=== PATIENT | female | born 1955 | race Caucasian/White ===

== ENCOUNTER → 2017-10-06 09:23 | Outpatient (CLI) | payer BC, SELFPAY ==
[2017-10-06 09:37] LABS: Basophils % 0.5 % (0.1-2.0); Eosinophils # 0.2 K/mm3 (0.0-0.4); Hemoglobin 14.6 g/dL (12.2-16.2); Lymphocytes # 1.5 K/mm3 (0.7-4.5); Lymphocytes % 27.9 K/mm3 (10-50); Mean Corpuscular HGB Conc 32.5 g/dL (31.8-35.4); Mean Corpuscular Hemoglobin 29.2 pg (27.0-31.2); Monocytes # 0.3 K/mm3 (0.1-1.0); Monocytes % 5.3 % (1.7-9.3); Neutrophils # 3.4 K/mm3 (1.8-7.8); Neutrophils % 63.3 % (37.0-80.0); Platelet Count 244 K/mm3 (142-424); Red Cell Distribution Width 12.7 % (11.5-17.5); White Blood Count 5.4 K/mm3 (4.8-10.8)
[2017-10-06 10:56] LABS: Alanine Aminotransferase 32 U/L (12-78); Albumin Level 4.2 gm/dL (3.4-5.0); Albumin/Globulin Ratio 1.3 (1.1-1.8); Alkaline Phosphatase 101 U/L (46-116); Anion Gap 12.2 mEq/L (5-15); Aspartate Amino Transferase 23 U/L (15-37); Bilirubin,Total 1.1 mg/dL (0.2-1.0); Blood Urea Nitrogen 15 mg/dL (7-18); Calcium 9.2 mg/dL (8.5-10.1); Carbon Dioxide 29 mmol/L (21.0-32.0); Chloride 105 mmol/L (98-107); Chol/HDL Ratio 2.8 (1-3.5); Cholesterol 156 mg/dL (140-200); Creatinine,Serum 0.78 mg/dL (0.55-1.02); Estimated Glomerular Filt Rate 75 ml/min (>60); GFR (African American) 90 ML/MIN (>60); Globulin 3.2 gm/dl (1.3-3.2); Glucose 124 mg/dL (74-106); HDL Cholesterol 55 mg/dL (29-89); LDL Cholesterol 86 mg/dL (0-130); Potassium 4.2 mmoL/L (3.5-5.1); Sodium 142 mmol/L (136-145); Total Protein,Serum 7.4 gm/dL (6.4-8.2); Triglycerides 76 mg/dL (30-200); VLDL Cholesterol 15 mg/dL (0-40)
[2017-10-07 19:41] LABS: Vitamin B12 1219 pg/mL (232-1245)
== END ==
PROVIDERS: Visit Provider Internal Medicine Adolescent Medicine
DX: E78.5 Hyperlipidemia, unspecified (principal); E53.8 Deficiency of other specified B group vitamins
CPT/HCPCS: 36415; 80053; 80061; 82607; 85025

== ENCOUNTER → 2018-10-05 09:19 | Outpatient (CLI) | payer BC, SELFPAY ==
[2018-10-05 09:36] LABS: Basophils % 0.6 % (0.1-2.0); Eosinophils # 0.1 K/mm3 (0.0-0.4); Eosinophils % 2.6 % (0.1-12.0); Hematocrit 40.6 % (37.0-47.0); Hemoglobin 14.1 g/dL (12.2-16.2); Lymphocytes # 1.7 K/mm3 (0.7-4.5); Lymphocytes % 31.8 % (10-50); Mean Corpuscular HGB Conc 34.7 g/dL (31.8-35.4); Mean Corpuscular Hemoglobin 30.3 pg (27.0-31.2); Mean Corpuscular Volume 87.2 fl (81-99); Mean Platelet Volume 7.8 fl (7.4-10.4); Monocytes # 0.3 K/mm3 (0.1-1.0); Monocytes % 5.4 % (1.7-9.3); Neutrophils # 3.1 K/mm3 (1.8-7.8); Neutrophils % 59.6 % (37.0-80.0); Platelet Count 230 K/mm3 (142-424); Red Blood Count 4.65 M/mm3 (4.20-5.40); Red Cell Distribution Width 12.8 % (11.5-17.5); White Blood Count 5.3 K/mm3 (4.8-10.8)
[2018-10-05 10:43] LABS: Alanine Aminotransferase 35 U/L (12-78); Albumin Level 3.8 gm/dL (3.4-5.0); Albumin/Globulin Ratio 1.3 (1.1-1.8); Alkaline Phosphatase 97 U/L (46-116); Anion Gap 12.1 mEq/L (5-15); Aspartate Amino Transferase 18 U/L (15-37); Bilirubin,Total 0.9 mg/dL (0.2-1.0); Blood Urea Nitrogen 11 mg/dL (7-18); Carbon Dioxide 28 mmol/L (21.0-32.0); Chloride 106 mmol/L (98-107); Chol/HDL Ratio 2.8 (1-3.5); Cholesterol 150 mg/dL (140-200); Creatinine,Serum 0.77 mg/dL (0.55-1.02); Estimated Glomerular Filt Rate 75 ml/min (>60); Free Thyroxine Index 1.8 ug/dL (5.93-13.13); GFR (African American) 91 ML/MIN (>60); Globulin 2.9 gm/dl (1.3-3.2); Glucose 119 mg/dL (74-106); HDL Cholesterol 53 mg/dL (29-89); LDL Cholesterol 77 mg/dL (0-130); Potassium 4.1 mmoL/L (3.5-5.1); Sodium 142 mmol/L (136-145); T4 (Thyroxine) 5.5 ug/dl (4.7-13.3); Total Protein,Serum 6.7 gm/dL (6.4-8.2); Triglycerides 98 mg/dL (30-200); Triiodothryronine (T3) Uptake 32 % (31-39); VLDL Cholesterol 20 mg/dL (0-40)
[2018-10-05 10:59] LABS: Hemoglobin A1C 6.5 % (0.0-7.0)
[2018-10-07 17:24] LABS: Vitamin B12 829 pg/mL (232-1245); Vitamin D 25 Hydroxy 38.4 ng/mL (30.0-100.0)
== END ==
PROVIDERS: Visit Provider Internal Medicine Adolescent Medicine
DX: E78.5 Hyperlipidemia, unspecified (principal); E53.8 Deficiency of other specified B group vitamins; E55.9 Vitamin D deficiency, unspecified; R73.03 Prediabetes; R79.89 Other specified abnormal findings of blood chemistry
CPT/HCPCS: 36415; 80053; 80061; 82607; 82652; 83036; 84436; 84443; 84479; 85025

== ENCOUNTER → 2019-01-04 09:24 | Outpatient (CLI) | payer BC, SELFPAY ==
[2019-01-04 11:24] LABS: Hemoglobin A1C 6.3 % (0.0-7.0)
[2019-01-04 11:55] LABS: Alanine Aminotransferase 32 U/L (12-78); Albumin Level 4.1 gm/dL (3.4-5.0); Albumin/Globulin Ratio 1.5 (1.1-1.8); Alkaline Phosphatase 86 U/L (46-116); Anion Gap 12.2 mEq/L (5-15); Aspartate Amino Transferase 23 U/L (15-37); Bilirubin,Total 1.2 mg/dL (0.2-1.0); Blood Urea Nitrogen 14 mg/dL (7-18); Calcium 9.1 mg/dL (8.5-10.1); Carbon Dioxide 28 mmol/L (21.0-32.0); Chloride 104 mmol/L (98-107); Chol/HDL Ratio 2.7 (1-3.5); Cholesterol 123 mg/dL (140-200); Estimated Glomerular Filt Rate 72 ml/min (>60); GFR (African American) 87 ML/MIN (>60); Globulin 2.8 gm/dl (1.3-3.2); Glucose 103 mg/dL (74-106); HDL Cholesterol 45 mg/dL (29-89); LDL Cholesterol 65 mg/dL (0-130); Potassium 4.2 mmoL/L (3.5-5.1); Sodium 140 mmol/L (136-145); Total Protein,Serum 6.9 gm/dL (6.4-8.2); Triglycerides 66 mg/dL (30-200); VLDL Cholesterol 13 mg/dL (0-40)
== END ==
PROVIDERS: Visit Provider Internal Medicine Adolescent Medicine
DX: R73.03 Prediabetes (principal); E78.5 Hyperlipidemia, unspecified
CPT/HCPCS: 36415; 80053; 80061; 83036

== ENCOUNTER → 2019-03-14 08:26 | Outpatient (CLI) | payer BC, SELFPAY ==
[2019-03-14 08:53] LABS: Basophils % 0.6 % (0.1-2.0); Eosinophils # 0.1 K/mm3 (0.0-0.4); Eosinophils % 1.5 % (0.1-12.0); Hematocrit 42.6 % (37.0-47.0); Lymphocytes # 1.6 K/mm3 (0.7-4.5); Lymphocytes % 26.5 % (10-50); Mean Corpuscular HGB Conc 32.8 g/dL (31.8-35.4); Mean Corpuscular Volume 91.5 fl (81-99); Mean Platelet Volume 8.6 fl (7.4-10.4); Monocytes # 0.3 K/mm3 (0.1-1.0); Monocytes % 5.1 % (1.7-9.3); Neutrophils # 3.9 K/mm3 (1.8-7.8); Neutrophils % 66.3 % (37.0-80.0); Platelet Count 247 K/mm3 (142-424); Red Blood Count 4.65 M/mm3 (4.20-5.40); Red Cell Distribution Width 13.4 % (11.5-17.5); White Blood Count 5.9 K/mm3 (4.8-10.8)
[2019-03-14 11:50] LABS: Alanine Aminotransferase 25 U/L (12-78); Albumin Level 3.8 gm/dL (3.4-5.0); Albumin/Globulin Ratio 1.4 (1.1-1.8); Alkaline Phosphatase 80 U/L (46-116); Anion Gap 11.3 mEq/L (5-15); Aspartate Amino Transferase 17 U/L (15-37); Bilirubin,Total 1.2 mg/dL (0.2-1.0); Blood Urea Nitrogen 8 mg/dL (7-18); Carbon Dioxide 28 mmol/L (21.0-32.0); Chloride 108 mmol/L (98-107); Creatinine,Serum 0.76 mg/dL (0.55-1.02); Estimated Glomerular Filt Rate 77 ml/min (>60); Free Thyroxine Index 2.6 ug/dL (5.93-13.13); GFR (African American) 93 ML/MIN (>60); Globulin 2.7 gm/dl (1.3-3.2); Glucose 107 mg/dL (74-106); Potassium 4.3 mmoL/L (3.5-5.1); Sodium 143 mmol/L (136-145); Thyroid Stimulating Hormone 2.58 uIU/ml (0.358-3.740); Total Protein,Serum 6.5 gm/dL (6.4-8.2); Triiodothryronine (T3) Uptake 37 % (31-39)
[2019-03-15 08:19] LABS: Vitamin B12 706 pg/mL (232-1245); Vitamin D 25 Hydroxy 31.3 ng/mL (30.0-100.0)
[2019-03-18 15:13] LABS: Methylmalonic Acid 116 nmol/L (0-378)
== END ==
PROVIDERS: Visit Provider Internal Medicine Adolescent Medicine
DX: R73.03 Prediabetes (principal); E53.8 Deficiency of other specified B group vitamins; R41.3 Other amnesia
CPT/HCPCS: 36415; 80053; 82131; 82607; 82652; 84436; 84443; 84479; 85025

== ENCOUNTER → 2019-03-15 15:44 | Outpatient (CLI) | payer BC, SELFPAY ==
--- NOTE | 2019-03-15 15:46 | MR_ITS ---
PROCEDURE: MR HEAD/BRAIN WO CON CLINICAL INDICATION: NONINTRACTABLE EPISODIC HEADACHE, MEMORY LOSS Memory loss with headache COMPARISON: No exams were available for comparison TECHNIQUE: Routine multiplanar multi echo sequences are performed without gadolinium enhancement. FINDINGS: No midline shift or mass effect. No acute intracranial hemorrhage hydrocephalus or acute cortical infarction. The cerebellopontine angles, cerebellum, and brainstem have an unremarkable appearance. There is minimal periventricular T2 white matter hyperintensity. A small sub cortical hyperintensity is present in the right parietal lobe. This is nonspecific and may be due to small ischemic gliotic focus. The hippocampal structures are unremarkable in the temporal horns are symmetric. The pituitary, optic chiasm, corpus callosum, and craniocervical junction has an unremarkable appearance. No mastoid effusion or sinus air-fluid level. Small T2 hyperintensity is present in the right parietal bone anteriorly nonspecific. IMPRESSION: 1. No acute intracranial finding. 2. Small T2 subcortical hyperintensity in the right parietal lobe nonspecific and may be due to small ischemic gliotic focus. Follow-up may confirm stability Dictated by: Isai Bergeron MD 03/15/2019 18:26 Electronically signed by Isai Bergeron MD in [place] 03/16/2019 09:46
== END ==
PROVIDERS: PCP Internal Medicine Adolescent Medicine; Visit Provider Internal Medicine Adolescent Medicine
DX: R51 Headache (principal); R41.3 Other amnesia
CPT/HCPCS: 70551

== ENCOUNTER → 2019-06-18 09:20 | Outpatient (CLI) | payer BC, SELFPAY ==
--- NOTE | 2019-06-18 09:23 | MR_ITS ---
PROCEDURE: MR HEAD/BRAIN WO CON CLINICAL INDICATION: NONINTRACTABLE EPISODIC HEADACHE, MEMORY LOSS Follow-up abnormal MRI of the brain COMPARISON: MR HEAD/BRAIN WO CON from 03/15/2019 TECHNIQUE: Routine multiplanar multi echo sequences are performed without gadolinium enhancement. FINDINGS: No midline shift, mass effect, intracranial hemorrhage, or hydrocephalus. The cerebellopontine angles, cerebellum, and brainstem have an appearance. No restricted diffusion. No evidence of acute infarction. A small T2 hyperintensity is once again noted in the subcortical region of the right parietal lobe at the post frontal cortex region. This appears slightly less intense on the axial FLAIR images there are a few other T2 white matter hyperintensities not significantly changed. No evidence of acute infarction. The pituitary, optic chiasm, corpus callosum, and craniocervical junction have an unremarkable appearance. IMPRESSION: 1. Overall stable MRI appearance of the brain. The small subcortical T2 white matter hyperintensity in the right parietal lobe appears slightly less apparent compared to the previous exam with the T2 intensity not quite so hyperintense as compared to the previous exam. This may represent a small ischemic gliotic focus. Recommend continued six-month follow-up. 2. No other significant changes. No acute finding. Dictated by: Isai Bergeron MD 06/19/2019 13:05 Electronically signed by Isai Bergeron MD in [place] 06/19/2019 13:05
== END ==
PROVIDERS: PCP Internal Medicine Adolescent Medicine; Visit Provider Internal Medicine Adolescent Medicine
DX: R51 Headache (principal); R41.3 Other amnesia
CPT/HCPCS: 70551

== ENCOUNTER → 2019-07-15 16:06 | Outpatient (CLI) | payer BC, SELFPAY ==
[2019-07-15 16:09] LABS: MANUAL DIFFERENTIAL MANUAL DIFFERENTIAL (MANUAL DIFF)
--- NOTE | 2019-07-15 16:14 | XR_ITS ---
PROCEDURE: XR CHEST 2V CLINICAL HISTORY: cough COMPARISON: CXR CHEST(2 VIEWS-NOT PORTABLE) from 11/09/2013 FINDINGS: The cardiomediastinal silhouette and pulmonary vascularity are within normal limits. The lungs are clear without infiltrates, suspicious nodules, or pleural effusions. No acute bony abnormalities. IMPRESSION: No acute findings. Dictated by: Isai Bergeron MD 07/15/2019 17:26 Electronically signed by Isai Bergeron MD in [place] 07/15/2019 17:26
[2019-07-15 16:52] LABS: Basophils % 0.3 % (0.1-2.0); Eosinophils % 0.2 % (0.1-12.0); Hemoglobin 12.7 g/dL (12.2-16.2); Lymphocytes # 0.6 K/mm3 (0.7-4.5); Lymphocytes % 8.6 % (10-50); Mean Corpuscular HGB Conc 34.2 g/dL (31.8-35.4); Mean Corpuscular Hemoglobin 29.8 pg (27.0-31.2); Mean Corpuscular Volume 87.1 fl (81-99); Monocytes # 0.3 K/mm3 (0.1-1.0); Monocytes % 3.5 % (1.7-9.3); Neutrophils # 6.3 K/mm3 (1.8-7.8); Neutrophils % 87.4 % (37.0-80.0); Platelet Count 325 K/mm3 (142-424); Red Blood Count 4.25 M/mm3 (4.20-5.40); White Blood Count 7.1 K/mm3 (4.8-10.8)
[2019-07-15 17:49] LABS: Lymphocytes % 13 % (10-50); Monocytes % 1 % (2-9); Neutrophils % 86 % (42-76); Platelet Estimate Normal; RBC Morphology Normal; Total Cells Counted 100
== END ==
PROVIDERS: Visit Provider Otolaryngology
DX: J02.9 Acute pharyngitis, unspecified (principal); R05 Cough
CPT/HCPCS: 36415; 71046; 85007; 85014; 85018; 85048; 85049

== ENCOUNTER → 2020-01-15 13:14 | Outpatient (CLI) | payer BC, MEDICARE, SELFPAY ==
[2020-01-15 15:28] VITALS: BMI 25.5
== END ==
PROVIDERS: PCP Internal Medicine Adolescent Medicine; Visit Provider Nurse Practitioner Family
DX: Z02.1 Encounter for pre-employment examination (principal); Z11.1 Encounter for screening for respiratory tuberculosis
CPT/HCPCS: 86580

== ENCOUNTER 2020-04-07 06:38 | Emergency (ER) | payer BC, MEDICARE, SELFPAY ==
[2020-04-07 06:40] VITALS: BP 145/86; PULSE 69; RESP 16; TEMP 36.4; O2SAT 98; BMI 25.7
--- NOTE | 2020-04-07 06:44 | PC.NURSE ---
Patient providing urine sample at this time.
[2020-04-07 06:47] VITALS: BMI 26.6
--- NOTE | 2020-04-07 06:48 | CT_ITS ---
PROCEDURE: CT ABDOMEN PELVIS WO CON CLINICAL INDICATION: rule out kidney stone Right flank pain COMPARISON: No exams were available for comparison TECHNIQUE: Axial images obtained with sagittal and coronal reformats. All CT scans at the facility use one or more dose reduction, viz: automated exposure control, ma/kV adjustment per patient size (including targeted exams where dose is matched to indication, i.e. head), or iterative reconstruction technique. FINDINGS: LOWER THORAX: There is moderate-sized hiatal hernia. ABDOMEN & PELVIS: The liver, spleen, adrenal glands, and pancreas have an unremarkable appearance. Gallbladder is slightly distended. Cortical scarring is present involving the midportion of the left kidney anteriorly with a focal calcification at this region which measures 7 mm. There are bilateral renal cysts. No hydronephrosis. No ureteral calculi. There is diverticulosis of the descending and sigmoid colon but no evidence of diverticulitis. The appendix is not clearly identified but there are no secondary signs of appendicitis. There has been a prior hysterectomy osteoarthritic changes are present in the hips. There is a tiny umbilical hernia containing fat IMPRESSION: 1. No acute abdominal or pelvic findings. 2. Moderate-sized hiatal hernia Dictated by: Isai Bergeron MD 04/07/2020 08:28 Isai Bergeron MD in [place] 04/07/2020 08:28
[2020-04-07 07:01] LABS: Microscopic, Urine URINE MICROSCOPIC (MICROSCOPIC)
[2020-04-07 07:03] LABS: Appearance,Urine CLEAR (Clear); Bilirubin,Urine Negative (Negative); Blood, Urine Negative (Negative); Color,Urine YELLOW (Yellow); Glucose,Urine (UA) Negative (Negative); Ketones,Urine Negative (Negative); Leukocyte Esterase,Urine Negative (Negative); Nitrate,Urine Negative (Negative); Protein,Urine Negative (Negative); Urobilinogen,Urine 0.2 EU/dl (0.2)
[2020-04-07 07:04] LABS: RBC,Urine Occasional #/hpf (0-3)
[2020-04-07 07:11] LABS: Basophils % 0.5 % (0.1-2.0); Eosinophils # 0.1 K/mm3 (0.0-0.4); Eosinophils % 1.8 % (0.1-12.0); Hematocrit 41.5 % (37.0-47.0); Hemoglobin 13.4 g/dL (12.2-16.2); Lymphocytes # 1.4 K/mm3 (0.7-4.5); Lymphocytes % 24.5 % (10-50); Mean Corpuscular HGB Conc 32.4 g/dL (31.8-35.4); Mean Corpuscular Hemoglobin 29.9 pg (27.0-31.2); Mean Corpuscular Volume 92.3 fl (81-99); Mean Platelet Volume 7.3 fl (7.4-10.4); Monocytes # 0.3 K/mm3 (0.1-1.0); Monocytes % 5.1 % (1.7-9.3); Neutrophils % 68.1 % (37.0-80.0); Platelet Count 242 K/mm3 (142-424); Red Cell Distribution Width 12.9 % (11.5-17.5); White Blood Count 5.9 K/mm3 (4.8-10.8)
[2020-04-07 07:15] LABS: Chloride 100 mmol/L (98-107)
[2020-04-07 07:16] LABS: Potassium 4.3 mmoL/L (3.5-5.1); Sodium 135 mmol/L (136-145)
[2020-04-07 07:18] LABS: Blood Urea Nitrogen 15 mg/dl (7-17); Creatinine Clearance Estimated 66 mL/min (50-200); Estimated Glomerular Filt Rate 63 ml/min (>60); GFR (African American) 76 ML/MIN (>60)
[2020-04-07 07:19] LABS: Alanine Aminotransferase 29 U/L (12-78); Albumin Level 4.5 g/dl (3.5-5.0); Albumin/Globulin Ratio 1.8 (1.1-1.8); Alkaline Phosphatase 82 U/L (38-126); Anion Gap 10.3 mEq/L (5-15); Aspartate Amino Transferase 35 U/L (14-36); Bilirubin,Total 1.1 mg/dl (0.2-1.3); Calcium 9.1 mg/dl (8.4-10.2); Carbon Dioxide 29 mmol/L (22.0-30.0); Globulin 2.5 g/dL (1.3-3.2); Glucose 125 mg/dl (74-100)
[2020-04-07 07:21] VITALS: BP 115/96; PULSE 69; O2SAT 97
[2020-04-07 07:25] LABS: C-Reactive Protein 0.8 mg/L (0-4)
[2020-04-07 07:30] VITALS: BP 113/67; PULSE 64; O2SAT 95
[2020-04-07 07:37] LABS: Procalcitonin 0.056 ng/mL (0.0-2.0)
[2020-04-07 07:38] LABS: Amylase 55 U/L (30-110); Coronavirus 19 IgG Antibody Negative (Negative); Coronavirus 19 IgM Antibody Negative (Negative); Lipase 113 U/L (23-300)
[2020-04-07 07:58] LABS: Amylase 55 U/L (30-110); Lipase 111 U/L (23-300)
--- NOTE | 2020-04-07 07:58 | HMH.EDNVD ---
ED Disposition Clinical Impression: Lumbar radiculopathy Disposition: Home, Self-Care Condition on Discharge: Good Instructions: DI for Low Back Pain Additional Instructions: use meds and call pcp for follow up Prescriptions: Hydrocod/Acet 5/325 mg [Topaz 5/325mg tablet] 1 tab PO Q6HP PRN #12 tab PRN Reason: Moderate To Severe Pain Prescription Printed predniSONE [Prednisone 20mg Tab] 20 mg PO BID #10 tab Transmission Status: Pending to [facility] Referrals: Osvaldo Omalley MD [Primary Care Provider] - - Critical Care Critical Care Time: No Attestation: On 04/07/20, the high probability of a clinically significant, sudden or life threatening deterioration of the following system(s) required my full and direct attention, intervention and personal management. The time I documented below is in addition to time spent performing reported procedures but includes the following listed in this critical care notation. Medical Decision Making - Medical Records Medical records reviewed: Yes: I reviewed the patient's medical records. - Dusty Inquiry Pt receiving controlled substance: No Vital Signs: 04/07/20 06:40 04/07/20 07:21 Temperature 97.6 F Temperature Source Oral Pulse Rate [Left Radial] 69 69 Respiratory Rate 16 Blood Pressure [Right Arm] 145/86 H 115/96 H Blood Pressure Mean [Right Arm] 105 102 Blood Pressure Source [Right Arm] Automatic Cuff Automatic Cuff Blood Pressure Position [Right Arm] Supine Sitting 02 Sat by Pulse Oximetry 98 97 Oxygen Delivery Method Room Air Room Air - Lab Data Lab results reviewed: Yes: I reviewed the patient's lab results. Lab Results 04/07/20 06:48: Urine Color Yellow, Urine Appearance Clear, Urine pH 6.0, Ur Specific [place] 1.020, Urine Protein Negative, Urine Glucose (UA) Negative, Urine Ketones Negative, Urine Blood Negative, Urine Nitrate Negative, Urine Bilirubin Negative, Urine Urobilinogen 0.2, Ur Leukocyte Esterase Negative, Urine RBC Occasional, Urine WBC 3-5, Ur Squamous Epith Cells 3-5 04/07/20 06:59: WBC 5.9, RBC 4.50, Hgb 13.4, Hct 41.5, MCV 92.3, MCH 29.9, MCHC 32.4, RDW 12.9, Plt Count 242, MPV 7.3 L, Neut % (Auto) 68.1, Lymph % (Auto) 24.5, [place] % (Auto) 5.1, Eos % (Auto) 1.8, Baso % (Auto) 0.5, Neut # (Auto) 4.0, Lymph # (Auto) 1.4, [place] # (Auto) 0.3, Eos # (Auto) 0.1, Baso # (Auto) 0.0 04/07/20 06:59: Sodium 135 L, Potassium 4.3, Chloride 100, Carbon Dioxide 29, Anion Gap 10.3, BUN 15, Creatinine 0.90, Estimated Creat Clear 66, Estimated GFR 63, Est GFR ( Amer) 76, Glucose 125 H, Calcium 9.1, Total Bilirubin 1.1, AST 35, ALT 29, Alkaline Phosphatase 82, C-Reactive Protein 0.8, Total Protein 7.0, Albumin 4.5, Globulin 2.5, Albumin/Globulin Ratio 1.8 04/07/20 06:59: ESR 17 04/07/20 06:59: Procalcitonin 0.056 04/07/20 06:59: SARS-CoV-2 IgG Ab (Rapid) Negative, SARS-CoV-2 IgM Ab (Rapid) Negative 04/07/20 06:59: Amylase 55, Lipase 113 04/07/20 06:59: Amylase 55, Lipase 111 Result diagrams: 04/07/20 06:59 04/07/20 06:59 Orders (Tests/Meds): ED MEDICATIONS Discontinued Medications Generic Name Dose Route Start Last Admin Trade Name Freq PRN Reason Stop Dose Admin Hydromorphone HCl 1 mg 04/07/20 07:27 04/07/20 07:28 Hydromorphone 2mg/Ml Syringe IV 04/07/20 07:28 1 mg ONCE ONE Administration Sodium Chloride 1,000 mls @ 999 mls/hr 04/07/20 07:15 04/07/20 07:14 Sod Chlor 0.9% 1000ml Bag IV 04/07/20 08:15 999 mls/hr .Q1H1M GABBY Administration Ketorolac Tromethamine 30 mg 04/07/20 07:02 04/07/20 07:14 Ketorolac 30mg/Ml Vial IV 04/07/20 07:03 30 mg ONCE ONE Administration Methylprednisolone Sodium Succinate 125 mg 04/07/20 07:33 04/07/20 07:35 Methylprednisolone Sod Succ 125mg Vial IV 04/07/20 07:34 125 mg ONCE ONE Administration Ondansetron HCl 4 mg 04/07/20 07:02 04/07/20 07:14 Ondansetron 4mg/2ml Vial IV 04/07/20 07:03 4 mg ONCE ONE Administration - CT Delfino
[2020-04-07 08:00] VITALS: BP 112/67; PULSE 67; O2SAT 96
[2020-04-07 08:30] VITALS: BP 107/66; PULSE 63; O2SAT 98
[2020-04-07 08:34] LABS: Erythrocyte Sedimentation Rate 17 mm/hr (0-30)
[2020-04-07 08:58] VITALS: BP 107/66; PULSE 64; RESP 16; TEMP 36.4; O2SAT 97
== END 2020-04-07 09:04 | disposition home or self-care (01) ==
PROVIDERS: Emergency Provider Emergency Medicine; PCP Internal Medicine Adolescent Medicine
DX: M54.16 Radiculopathy, lumbar region (principal); Z01.84 Encounter for antibody response examination; E11.9 Type 2 diabetes mellitus without complications; I10 Essential (primary) hypertension; Z79.899 Other long term (current) drug therapy
CPT/HCPCS: 74176; 80053; 81001; 82150; 83690; 84145; 85025; 85651; 86140; 86328; 96365; 96375; 99284; J2405

== ENCOUNTER → 2020-06-04 11:42 | Outpatient (CLI) | payer BC, MEDICARE, SELFPAY ==
[2020-06-04 12:13] LABS: Basophils % 0.5 % (0.1-2.0); Eosinophils # 0.1 K/mm3 (0.0-0.4); Eosinophils % 0.9 % (0.1-12.0); Hematocrit 42.1 % (37.0-47.0); Hemoglobin 14.6 g/dL (12.2-16.2); Lymphocytes # 1.5 K/mm3 (0.7-4.5); Lymphocytes % 22.5 % (10-50); Mean Corpuscular HGB Conc 34.7 g/dL (31.8-35.4); Mean Corpuscular Hemoglobin 31.3 pg (27.0-31.2); Mean Corpuscular Volume 90.3 fl (81-99); Mean Platelet Volume 7.8 fl (7.4-10.4); Monocytes # 0.4 K/mm3 (0.1-1.0); Monocytes % 5.3 % (1.7-9.3); Neutrophils # 4.8 K/mm3 (1.8-7.8); Neutrophils % 70.8 % (37.0-80.0); Platelet Count 256 K/mm3 (142-424); Red Blood Count 4.66 M/mm3 (4.20-5.40); White Blood Count 6.8 K/mm3 (4.8-10.8)
[2020-06-04 12:39] LABS: Hemoglobin A1C 6.1 % (4.0-6.0)
[2020-06-04 13:42] LABS: Alanine Aminotransferase 26 U/L (12-78); Albumin Level 4.6 g/dl (3.5-5.0); Albumin/Globulin Ratio 1.8 (1.1-1.8); Alkaline Phosphatase 84 U/L (38-126); Anion Gap 12.1 mEq/L (5-15); Aspartate Amino Transferase 32 U/L (14-36); Bilirubin,Total 1.4 mg/dl (0.2-1.3); Blood Urea Nitrogen 13 mg/dl (7-17); Calcium 9.6 mg/dl (8.4-10.2); Carbon Dioxide 25 mmol/L (22.0-30.0); Chloride 103 mmol/L (98-107); Chol/HDL Ratio 2.4 (1-3.5); Cholesterol 157 mg/dl (140-200); Estimated Glomerular Filt Rate 55 ml/min (>60); GFR (African American) 67 ML/MIN (>60); Globulin 2.5 g/dL (1.3-3.2); Glucose 112 mg/dl (74-100); HDL Cholesterol 66 mg/dl (40-60); Potassium 4.1 mmoL/L (3.5-5.1); Sodium 136 mmol/L (136-145); Total Protein,Serum 7.1 g/dl (6.3-8.2); Triglycerides 86 mg/dl (30-150); VLDL Cholesterol 17 mg/dL (0-40)
[2020-06-04 13:53] LABS: Direct LDL Cholesterol 69.59 mg/dL (100-129)
[2020-06-04 14:31] LABS: Vitamin B12 624 pg/mL (239-931)
[2020-06-04 17:32] LABS: 25-OH Vitamin D, Total 44.9 ng/mL (30-100)
== END ==
PROVIDERS: Visit Provider Internal Medicine Adolescent Medicine
DX: E78.5 Hyperlipidemia, unspecified (principal); R73.03 Prediabetes; E53.8 Deficiency of other specified B group vitamins; E55.9 Vitamin D deficiency, unspecified
CPT/HCPCS: 36415; 80053; 80061; 82306; 82607; 83036; 85025

== ENCOUNTER → 2020-12-17 11:15 | Outpatient (CLI) | payer BC, MEDICARE, SELFPAY ==
[2020-12-17 11:35] LABS: Basophils % 0.6 % (0.1-2.0); Eosinophils # 0.1 K/mm3 (0.0-0.4); Eosinophils % 1.8 % (0.1-12.0); Hematocrit 41.9 % (37.0-47.0); Hemoglobin 13.3 g/dL (12.2-16.2); Lymphocytes # 1.5 K/mm3 (0.7-4.5); Lymphocytes % 28.7 % (10-50); Mean Corpuscular HGB Conc 31.7 g/dL (31.8-35.4); Mean Corpuscular Hemoglobin 28.5 pg (27.0-31.2); Mean Platelet Volume 7.9 fl (7.4-10.4); Monocytes # 0.2 K/mm3 (0.1-1.0); Monocytes % 4.6 % (1.7-9.3); Neutrophils # 3.4 K/mm3 (1.8-7.8); Neutrophils % 64.2 % (37.0-80.0); Platelet Count 226 K/mm3 (142-424); Red Blood Count 4.65 M/mm3 (4.20-5.40); White Blood Count 5.3 K/mm3 (4.8-10.8)
[2020-12-17 11:50] LABS: Hemoglobin A1C 6.2 % (4.0-6.0)
[2020-12-17 12:30] LABS: Alanine Aminotransferase 21 U/L (12-78); Albumin Level 4.3 g/dl (3.5-5.0); Alkaline Phosphatase 80 U/L (38-126); Anion Gap 11.6 mEq/L (5-15); Aspartate Amino Transferase 29 U/L (14-36); Bilirubin,Total 1.1 mg/dl (0.2-1.3); Blood Urea Nitrogen 10 mg/dl (7-17); Calcium 8.7 mg/dl (8.4-10.2); Carbon Dioxide 29 mmol/L (22.0-30.0); Chloride 106 mmol/L (98-107); Chol/HDL Ratio 2.1 (1-3.5); Cholesterol 143 mg/dl (140-200); Estimated Glomerular Filt Rate 72 ml/min (>60); GFR (African American) 87 ML/MIN (>60); Globulin 2.2 g/dL (1.3-3.2); Glucose 104 mg/dl (74-100); HDL Cholesterol 67 mg/dl (40-60); Potassium 4.6 mmoL/L (3.5-5.1); Sodium 142 mmol/L (136-145); Total Protein,Serum 6.5 g/dl (6.3-8.2); Triglycerides 57 mg/dl (30-150); VLDL Cholesterol 11 mg/dL (0-40)
== END ==
PROVIDERS: Visit Provider Internal Medicine Adolescent Medicine
DX: E78.5 Hyperlipidemia, unspecified (principal); R73.03 Prediabetes
CPT/HCPCS: 36415; 80053; 80061; 83036; 85025

== ENCOUNTER 2021-01-14 14:19 | Emergency (ER) | payer BC, MEDICARE, SELFPAY ==
[2021-01-14 15:22] VITALS: BP 161/63; PULSE 68; RESP 12; TEMP 36.9; O2SAT 98; BMI 24.9
--- NOTE | 2021-01-14 15:23 | HMH.EDUTC ---
[facility] [place] Clinical Impression: UTI (urinary tract infection) Qualifiers: Urinary tract infection type: site unspecified Hematuria presence: with hematuria Qualified Code(s): N39.0 - Urinary tract infection, site not specified Disposition: Home, Self-Care Condition on Discharge: Good Instructions: Urinary Tract Infection, DI for Urinary Tract Infection (UTI), Phenazopyridine Additional Instructions: Drink plenty of fluids. Take tylenol or ibuprofen for pain or fever. Take the medications as directed. Follow up with your regular doctor. GO TO THE ER FOR ANY WORSENING SYMPTOMS The pyridium will make your urine turn orange, this is an expected side effect. It will stain your clothes if it comes into contact with them. Prescriptions: Sulfamethoxazole/Trimethoprim [Bactrim DS tablet] 1 each PO BID 7 Days #14 tab Transmission Status: Received by [facility] Phenazopyridine HCl [Pyridium 200mg Tablet] 200 pow PO TID #6 tab Transmission Status: Received by [facility] Referrals: Osvaldo Omalley MD [Primary Care Provider] - Time of Disposition: 15:28 Medical Decision Making - Medical Records Medical records reviewed: No: I reviewed the patient's medical records. - Dusty Inquiry Pt receiving controlled substance: No Vital Signs: 01/14/21 15:22 01/14/21 15:37 Temperature 98.4 F 98.4 F Temperature Source Oral Pulse Rate 68 Pulse Rate [Right] 68 Respiratory Rate 12 12 Blood Pressure 161/63 H Blood Pressure [Right Arm] 161/63 H Blood Pressure Mean [Right Arm] 95 02 Sat by Pulse Oximetry 98 - Lab Data Lab results reviewed: Yes: I reviewed the patient's lab results. Lab Results 01/14/21 15:35: Urine Color Yellow, Urine Appearance Clear, Urine pH 7.0, Ur Specific [place] 1.010, Urine Protein Negative, Urine Glucose (UA) Negative, Urine Ketones Negative, Urine Blood 3+, Urine Nitrate Negative, Urine Bilirubin Negative, Urine Urobilinogen 0.2, Ur Leukocyte Esterase 2+ A Orders (Tests/Meds): ORDERS Category Date Time Status Urine Culture Stat Micro 01/14/21 15:00 Received [facility] [place] - General Stated complaint: possible uti Time Seen by Provider: 01/14/21 15:24 - History of Present Illness Provider Complaint: She states that for the past 1 day she has had burning with urination and some low back pain. She feels like she is getting a uti. - Related Data Home Medications Medication Instructions Recorded Confirmed atorvastatin 40 mg tablet 40 mg PO DAILY 07/15/19 04/07/20 bisoprolol 5 1 tab PO DAILY 07/15/19 04/07/20 mg-hydrochlorothiazide 6.25 mg tablet escitalopram oxalate 10 mg tablet 10 mg PO DAILY 07/15/19 04/07/20 metformin 500 mg tablet 500 mg PO DAILY 07/15/19 04/07/20 Previous Rx's Medication Instructions Recorded Hydrocod/Acet 5/325 mg [[place] 1 tab PO Q6HP PRN #12 tab 04/07/20 5/325mg tablet] predniSONE [Prednisone 20mg 20 mg PO BID #10 tab 04/07/20 Tab] Phenazopyridine HCl [Pyridium 200 pow PO TID #6 tab 01/14/21 200mg Tablet] Sulfamethoxazole/Trimethoprim 1 each PO BID 7 Days #14 tab 01/14/21 [Bactrim DS tablet] Allergies Allergy/AdvReac Type Severity Reaction Status Date / Time NKDA - NO KNOWN DRUG Allergy Unknown Uncoded 07/22/19 14:19 ALLERGIES [facility] History - Hepatitis A Screen Attestation statement:: This patient has been screened for Hepatitis A risk factors. I have reviewed the patient's past medical history: Yes Medical History: Reports:: Cancer, Diabetes Mellitus Type 2 Denies:: Diabetes Mellitus Type 1, Internal Pacemaker, MRSA Laterality Cases: Bilateral: Tonsillectomy Other Surgeries: Yes: Other. No: Pacemaker Amputation: No Fractures: No - Social History Smoking Status: Never smoker Alcohol Intake: never Occupational Status: retired Housing: house Family Hx:: Hypertension, Hyperlipidemia ROS Obtained: Yes All systems reviewed & no additional complai
[2021-01-14 15:36] LABS: Apearance,Urine Clear (Clear); Bilirubin,Urine Negative (Negative); Blood, Urine 3+ (Negative); Color,Urine Yellow (Yellow); Glucose,Urine (UA) Negative (Negative); Ketones,Urine Negative (Negative); Protein,Urine Negative (Negative); UTC Leukocyte Esterase,Urine 2+ (Negative); UTC Nitrate,Urine Negative (Negative); Urobilinogen,Urine 0.2 EU/dl (0.2)
[2021-01-14 15:37] VITALS: BP 161/63; PULSE 68; RESP 12; TEMP 36.9; O2SAT 98
== END 2021-01-14 15:40 | disposition home or self-care (01) ==
PROVIDERS: Emergency Provider Nurse Practitioner Family; PCP Internal Medicine Adolescent Medicine
DX: N30.00 Acute cystitis without hematuria (principal); E11.9 Type 2 diabetes mellitus without complications; E78.5 Hyperlipidemia, unspecified; Z79.899 Other long term (current) drug therapy
CPT/HCPCS: 81003; 87086; 99202; G0463

== ENCOUNTER → 2021-03-25 10:58 | Outpatient (CLI) | payer BC, MEDICARE, SELFPAY ==
[2021-03-25 11:39] LABS: Basophils % 0.4 % (0.1-2.0); Eosinophils # 0.1 K/mm3 (0.0-0.4); Eosinophils % 0.6 % (0.1-12.0); Hematocrit 39.4 % (37.0-47.0); Hemoglobin 13.2 g/dL (12.2-16.2); Lymphocytes # 1.1 K/mm3 (0.7-4.5); Mean Corpuscular HGB Conc 33.5 g/dL (31.8-35.4); Mean Corpuscular Hemoglobin 30.2 pg (27.0-31.2); Mean Corpuscular Volume 90.3 fl (81-99); Mean Platelet Volume 7.9 fl (7.4-10.4); Monocytes # 0.3 K/mm3 (0.1-1.0); Monocytes % 4.5 % (1.7-9.3); Neutrophils % 79.5 % (37.0-80.0); Platelet Count 282 K/mm3 (142-424); Red Blood Count 4.37 M/mm3 (4.20-5.40); Red Cell Distribution Width 13.5 % (11.5-17.5); White Blood Count 7.5 K/mm3 (4.8-10.8)
[2021-03-25 12:26] LABS: Alanine Aminotransferase 17 U/L (12-78); Albumin Level 4.3 g/dl (3.5-5.0); Albumin/Globulin Ratio 1.8 (1.1-1.8); Alkaline Phosphatase 85 U/L (38-126); Anion Gap 11.6 mEq/L (5-15); Aspartate Amino Transferase 33 U/L (14-36); Bilirubin,Total 1.6 mg/dl (0.2-1.3); Blood Urea Nitrogen 8 mg/dl (7-17); Calcium 9.2 mg/dl (8.4-10.2); Carbon Dioxide 29 mmol/L (22.0-30.0); Chloride 101 mmol/L (98-107); Chol/HDL Ratio 2.2 (1-3.5); Cholesterol 125 mg/dl (140-200); Estimated Glomerular Filt Rate 84 ml/min (>60); GFR (African American) 101 ML/MIN (>60); Globulin 2.4 g/dL (1.3-3.2); Glucose 99 mg/dl (74-100); HDL Cholesterol 58 mg/dl (40-60); Potassium 3.6 mmoL/L (3.5-5.1); Sodium 138 mmol/L (136-145); Total Protein,Serum 6.7 g/dl (6.3-8.2); Triglycerides 68 mg/dl (30-150); VLDL Cholesterol 14 mg/dL (0-40)
[2021-03-25 12:27] LABS: Hemoglobin A1C 5.7 % (4.0-6.0)
[2021-03-25 12:38] LABS: Direct LDL Cholesterol 52.47 mg/dL (100-129)
[2021-03-25 13:15] LABS: Vitamin B12 880 pg/mL (239-931)
[2021-03-25 15:26] LABS: 25-OH Vitamin D, Total 41.5 ng/mL (30-100)
[2021-03-31 15:12] LABS: QuantiFERON-TB Gold Plus Negative (Negative)
== END ==
PROVIDERS: Visit Provider Internal Medicine Adolescent Medicine
DX: R10.84 Generalized abdominal pain (principal); R73.03 Prediabetes; R63.4 Abnormal weight loss; E78.5 Hyperlipidemia, unspecified; E55.9 Vitamin D deficiency, unspecified
CPT/HCPCS: 36415; 80053; 80061; 82306; 82607; 83036; 85025; 86480

== ENCOUNTER → 2021-03-31 10:00 | Outpatient (CLI) | payer BC, SELFPAY ==
--- NOTE | 2021-03-31 10:03 | US_ITS ---
PROCEDURE: US ABDOMEN COMPLETE CLINICAL INDICATION: GENERALIZED ABD PAIN, WEIGHT LOSS COMPARISON: US RUQ US RUQ-(ABD LTD)1ORGAN/QUAD/FU from 09/05/2013 FINDINGS: PANCREAS: Unremarkable. No obvious mass or abnormal fluid collection. No ductal dilatation LIVER: No focal liver lesions demonstrated. Homogeneous echogenicity. No intrahepatic biliary ductal dilatation evident. There is appropriate direction of blood flow within a non dilated portal vein RIGHT KIDNEY: 15 mm hypoechoic nodule is present along the lower pole of the right kidney this previously measured 24 mm. The margins are somewhat irregular but could be related to the sonographic technique. This may represent a complex cyst. No hydronephrosis LEFT KIDNEY: There are 2 benign-appearing left renal cysts at 17 mm and 26 mm. No hydronephrosis. Hyperechoic focus is present in the mid aspect of the left kidney suggesting a small stone renal stone at approximately 6 mm GALLBLADDER: No gallstones, gallbladder wall thickening, pericholecystic fluid, or biliary dilatation. AORTA: No evidence of aneurysmal dilatation. SPLEEN: Unremarkable. Normal size and echogenicity ASCITES: None demonstrated. IMPRESSION: No acute finding. Bilateral renal cysts Dictated by: Isai Bergeron MD 04/01/2021 08:02 Isai Bergeron MD in [place] 04/01/2021 08:02
== END ==
PROVIDERS: PCP Internal Medicine Adolescent Medicine; Visit Provider Internal Medicine Adolescent Medicine
DX: R10.84 Generalized abdominal pain (principal); R63.4 Abnormal weight loss
CPT/HCPCS: 76700

== ENCOUNTER 2022-03-27 08:33 | Emergency (ER) | payer BC, SELFPAY ==
[2022-03-27] VITALS (18 sets, daily range): BP systolic 123–160; BP diastolic 72–95; PULSE 60–87; RESP 14–18; TEMP 36.6–36.7; O2SAT 96–100; BMI 24.9
--- NOTE | 2022-03-27 08:47 | XR_ITS ---
PROCEDURE INFORMATION: Exam: XR Right Humerus Exam date and time: 03/27/2022 9:24 AM Age: 66 years old Clinical indication: Injury or trauma; Fall; Blunt trauma (contusions or hematomas); Shoulder and elbow; Right; Additional info: Fall, pain TECHNIQUE: Imaging protocol: Radiologic exam of the Right humerus. Views: 2 or more views. COMPARISON: CR XR CHEST 2V 07/15/2019 4:19 PM FINDINGS: Bones/joints: Acute dislocation of the elbow with posterior translation of the ulna and radius relative to the humerus. Probable fracture of the radial head/neck. No definite fracture of the humerus. Osteopenia. Soft tissues: Normal. IMPRESSION: Acute dislocation of the elbow with posterior translation of the ulna and radius relative to the humerus. Probable fracture of the radial head/neck. No definite fracture of the humerus.
--- NOTE | 2022-03-27 08:47 | XR_ITS ---
PROCEDURE INFORMATION: Exam: XR Right Forearm Exam date and time: 03/27/2022 9:48 AM Age: 66 years old Clinical indication: Injury or trauma; Fall; Blunt trauma (contusions or hematomas); Shoulder; Right; Additional info: Fall, pain TECHNIQUE: Imaging protocol: Radiologic exam of the Right forearm. Views: 2 views. COMPARISON: No relevant prior studies available. FINDINGS: Bones/joints: Acute dislocation of the elbow with posterior translation of the ulna and radius relative to the humerus. Probable fracture of the radial head/neck. Soft tissues: Normal. IMPRESSION: Acute dislocation of the elbow with posterior translation of the ulna and radius relative to the humerus. Probable fracture of the radial head/neck.
--- NOTE | 2022-03-27 08:47 | XR_ITS ---
PROCEDURE INFORMATION: Exam: XR Right Elbow Exam date and time: 03/27/2022 9:48 AM Age: 66 years old Clinical indication: Injury or trauma; Fall; Blunt trauma (contusions or hematomas); Shoulder and arm, lower; Right; Additional info: Fall, pain TECHNIQUE: Imaging protocol: Radiologic exam of the Right elbow. Views: 3 or more views. COMPARISON: CR XR HUMERUS RT 03/27/2022 9:24 AM FINDINGS: Bones/joints: Acute dislocation of the elbow with posterior translation of the ulna and radius relative to the humerus. Probable fracture of the radial head/neck. Joint effusion is present. Soft tissues: Normal. IMPRESSION: Acute dislocation of the elbow with posterior translation of the ulna and radius relative to the humerus. Probable fracture of the radial head/neck.
--- NOTE | 2022-03-27 08:49 | HMH.EDGENADL ---
Discharge Plan Disposition Patient Disposition: Home, Self-Care Condition: Good Prescriptions Prescriptions: New oxycodone 5 mg tablet 5 mg PO Q6H PRN (Reason: pain) Qty: 12 0RF No Action metformin 500 mg tablet 500 mg PO DAILY escitalopram oxalate 10 mg tablet 10 mg PO DAILY atorvastatin 40 mg tablet 40 mg PO DAILY bisoprolol-hydrochlorothiazide 5-6.25 mg tablet 1 tab PO DAILY prednisone 20 MG tablet 20 mg PO BID Qty: 10 0RF hydrocodone-acetaminophen 1 TAB tablet 1 tab PO Q6HP PRN (Reason: Moderate To Severe Pain) Qty: 12 0RF phenazopyridine 200 MG tablet 200 pow PO TID Qty: 6 0RF sulfamethoxazole-trimethoprim 1 EACH tablet 1 each PO BID 7 Days Qty: 14 0RF Referrals Follow up/Referrals: Raymon Langston DO [Staff Physician] - See instructions Osvaldo Omalley MD [Primary Care Provider] - See instructions Activity Restrictions/Add. Instructions Additional Instructions/Restrictions: You were evaluated in the emergency department today and diagnosed with a right elbow fracture dislocation. Please follow-up outpatient with orthopedics. I am providing you with a referral to Dr. Langston. 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 Keep your splint clean, dry, and on. Do not remove it. Return to the emergency department for any new or worsening symptoms, such as numbness, tingling, significant increase in pain, or other concerns. Clinical Impressions Clinical Impression: Closed fracture dislocation of right elbow joint Instructions Patient Instructions: DI for Elbow Fracture, DI for Elbow Dislocation, How to Take Care of Your Splint, DI for Moderate Sedation Discharge ED Provider: Gisell Marie General Adult HPI General Chief complaint: Extremity Injury, Upper Stated complaint: Fall@home 03/27 RT arm pain Time Seen by Provider: 03/27/22 08:42 Mode of Arrival: Ambulatory Limitations: No Limitations Description of Symptoms (Recalled from ER Triage Doc. by RN): fall at home this am, pain to right arm/elbow History of Present Illness HPI narrative: This patient is a 66-year-old female with history of early onset dementia presenting to the emergency department for evaluation of right elbow pain after ground-level fall. She reports that she was walking out of her house today to go [place] when she slipped on ice and fell onto her right elbow. She felt immediate pain. She did not hit her head or lose consciousness. She denies any other injuries at this time. Her pain is currently a 6 out of 10. It is worse with any movement. No numbness or tingling associated. She was well prior to the fall. She has been ambulatory since the fall with no pain in her lower extremities. Related Data Home Medications Medication Instructions Recorded Confirmed atorvastatin 40 mg tablet 40 mg PO DAILY High cholesterol 07/15/19 04/07/20 bisoprolol 5 1 tab PO DAILY High blood pressure 07/15/19 04/07/20 mg-hydrochlorothiazide 6.25 mg tablet escitalopram oxalate 10 mg tablet 10 mg PO DAILY Anxiety 07/15/19 04/07/20 metformin 500 mg tablet 500 mg PO DAILY Diabetes 07/15/19 04/07/20 Previous Rx's Medication Instructions Recorded hydrocodone 5 mg-acetaminophen 325 1 tab PO Q6HP PRN Moderate To 04/07/20 mg tablet Severe Pain #12 tabs prednisone 20 mg tablet 20 mg PO BID #10 tabs 04/07/20 phenazopyridine 200 mg tablet 200 pow PO TID #6 tabs 01/14/21 sulfamethoxazole 800 1 each PO BID 7 days #14 tabs 01/14/21 mg-trimethoprim 160 mg tablet oxycodone 5 mg tablet 5 mg PO Q6H PRN pain #12 tabs 03/27/22 Allergies Allergy/AdvReac Type Severity Reaction Status Date / Time NKDA - NO KNOWN DRUG Allergy Unknown Uncoded 07/22/19 14:19 ALLERGIES PFSH PFSH Family History Other No significant family history Social History (Reviewed 03/27/22 @ 08:51 by Gisell Auguste
--- NOTE | 2022-03-27 09:32 | PC.NURSE ---
PT TO XR
--- NOTE | 2022-03-27 09:40 | PC.NURSE ---
pt in radiology
--- NOTE | 2022-03-27 09:44 | PC.NURSE ---
PT RETURNED FROM XR
--- NOTE | 2022-03-27 09:54 | PC.NURSE ---
ED MD AT BEDSIDE TO UPDATE PT AND ON POC
--- NOTE | 2022-03-27 09:54 | PC.NURSE ---
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
--- NOTE | 2022-03-27 10:00 | PC.NURSE ---
PT MOVED TO ROOM 2 FOR CARDIAC MONITORING FOR PROCEDURE
--- NOTE | 2022-03-27 10:01 | PC.NURSE ---
KEYLA ALLRED SPEAKING WITH DR. CAMDEN WILLIAMSON
--- NOTE | 2022-03-27 10:05 | PC.NURSE ---
CONSENT EXPLAINED AND SIGNED TO PT AND . SIGNED CONSENT
--- NOTE | 2022-03-27 10:38 | XR_ITS ---
PROCEDURE INFORMATION: Exam: XR Right Elbow Exam date and time: 03/27/2022 11:04 AM Age: 66 years old Clinical indication: Screening exam; Post reduction films-- in splint unable to move elbow to an ap position; Additional info: Post-reduction TECHNIQUE: Imaging protocol: Radiologic exam of the Right elbow. Views: 1 or 2 views. COMPARISON: CR XR ELBOW RT MIN 3V 03/27/2022 9:48 AM FINDINGS: Bones/joints: Interval reduction of the right elbow. Alignment is improved, though there does appear to be some persistent abnormal overlap on the lateral projection of the radius and capitellum. Acute radial head/neck fracture and possible humeral condylar fracture. Joint effusion is present. Soft tissues: Normal. IMPRESSION: 1. Interval reduction of the right elbow. Alignment is improved, though there does appear to be some persistent abnormal overlap on the lateral projection of the radius and capitellum. 2. Acute radial head/neck fracture and possible humeral condylar fracture, which could be better assessed by CT.
--- NOTE | 2022-03-27 11:38 | CT_ITS ---
PROCEDURE INFORMATION: Exam: CT Right Upper Extremity Without Contrast, Elbow Exam date and time: 03/27/2022 12:48 PM Age: 66 years old Clinical indication: Injury or trauma; Fall; Dislocation and swelling (edema); Elbow; Right; Additional info: R elbow fracture and post reduction dislocation in long arm splint unable to position arm in splint TECHNIQUE: Imaging protocol: Computed tomography of the Right upper extremity without contrast. Exam focused on the elbow. 3D rendering (Not supervised by radiologist): MIP and/or 3D reconstructed images were created by the technologist. Radiation optimization: All CT scans at this facility use at least one of these dose optimization techniques: automated exposure control; mA and/or kV adjustment per patient size (includes targeted exams where dose is matched to clinical indication); or iterative reconstruction. COMPARISON: CR XR ELBOW RT 2V 03/27/2022 11:04 AM FINDINGS: Bones/joints: There is persistent mild anterior dislocation of the humerus relative to the radius and ulna. The trochlea appears perched on the coronoid process. Acute mildly displaced, mildly impacted radial head fracture. Small osseous fragment along the posterior aspect of the capitellum may originate from the capitellum. Acute chip fracture of the coronoid process. Tiny acute chip fracture off the trochlea. Elbow joint effusion is present. Soft tissues: There is some subcutaneous edema and hemorrhage about the elbow. IMPRESSION: 1. There is persistent mild anterior dislocation of the humerus relative to the radius and ulna. The trochlea appears perched on the coronoid process. 2. Acute mildly displaced, mildly impacted radial head fracture. 3. Acute chip fractures of the coronoid process and trochlea. 4. Small osseous fragment along the posterior aspect of the capitellum may originate from the capitellum.
--- NOTE | 2022-03-27 11:50 | PC.NURSE ---
PT TO CT
--- NOTE | 2022-03-27 11:52 | PC.NURSE ---
pt to CT
--- NOTE | 2022-03-27 11:58 | PC.NURSE ---
PT RETURNED FROM CT
--- NOTE | 2022-03-27 12:30 | PC.NURSE ---
ED MD AT BEDSIDE
--- NOTE | 2022-03-27 12:36 | PC.NURSE ---
DR HANNAH PAGED AGAIN
--- NOTE | 2022-03-27 12:57 | PC.NURSE ---
DR. DOLL SPEAKING WITH DR. HANNAH
== END 2022-03-27 13:50 | disposition home or self-care (01) ==
PROVIDERS: Emergency Provider Emergency Medicine; PCP Internal Medicine Adolescent Medicine
DX: S52.121A Displaced fracture of head of right radius, initial encounter for closed fracture (principal); W00.2XXA Other fall from one level to another due to ice and snow, initial encounter; Y92.008 Other place in unspecified non-institutional (private) residence as the place of occurrence of the external cause; Z79.84 Long term (current) use of oral hypoglycemic drugs; Z79.899 Other long term (current) drug therapy
CPT/HCPCS: 24620; 29065; 73060; 73070; 73080; 73090; 73200; 96365; 96375; 99152; 99153; 99285; J2405; J2704

== ENCOUNTER 2022-08-26 10:50 | Emergency (ER) | payer BC, SELFPAY ==
[2022-08-26 11:01] VITALS: BP 173/99; PULSE 74; RESP 18; O2SAT 97; BMI 29.2
[2022-08-26 11:05] VITALS: BP 173/99; PULSE 74; RESP 18; TEMP 36.7; O2SAT 97; BMI 29.0
--- NOTE | 2022-08-26 11:10 | EXP.UTC ---
Discharge Plan Disposition Patient Disposition: Home, Self-Care Condition: Good Prescriptions Prescriptions: No Action metformin 500 mg tablet 500 mg PO DAILY escitalopram oxalate 10 mg tablet 10 mg PO DAILY atorvastatin 40 mg tablet 40 mg PO DAILY bisoprolol-hydrochlorothiazide 5-6.25 mg tablet 1 tab PO DAILY prednisone 20 MG tablet 20 mg PO BID Qty: 10 0RF hydrocodone-acetaminophen 1 TAB tablet 1 tab PO Q6HP PRN (Reason: Moderate To Severe Pain) Qty: 12 0RF oxycodone 5 mg tablet 5 mg PO Q6H PRN (Reason: pain) Qty: 12 0RF phenazopyridine 200 MG tablet 200 pow PO TID Qty: 6 0RF sulfamethoxazole-trimethoprim 1 EACH tablet 1 each PO BID 7 Days Qty: 14 0RF Referrals Follow up/Referrals: Osvaldo Omalley MD [Primary Care Provider] - See instructions Massimo Nguyen MD [Physician] - See instructions Chang Rojas MD [Physician] - See instructions Pepe Charles III, MD [Staff Physician] - See instructions Activity Restrictions/Add. Instructions Additional Instructions/Restrictions: Suture instructions: ?You have required stitches today. Please read the following instructions so you know how to care for them: ?1. Keep wound area dry for the first 24 hours. 2?? May clean gently with mild soap and water, after 48 hours to prevent crusting over suture knots. 3. You may shower if your provider gives permission but do not take a bath until the skin is healed.. 4. Never leave a wet dressing or Band-Aid on your stitches as this allows bacteria to reach the area and may cause infection. Band-aids can cause the wound to sweat and not recommended to wear for long periods of time Watch for signs of infection: ? Increasing redness, tenderness or warmth around the suture site ? Unusual swelling around the site ? Appearance of pus around each suture or any red streaks ? Fever If you develop any of the above signs or symptoms of infection, Follow up with Family Physician immediately 5. Suture removal in _7___days 6. Return to [facility] or follow up with family doctor for removal. This can be done by any medical provider dur?ing regular hours on Monday through Monday, by appointment. Follow up with ENT next week to look at laceration Clinical Impressions Clinical Impression: Laceration Instructions Patient Instructions: DI for Laceration Repair Discharge ED Provider: Kelly Hensley [facility] [place] HPI General Stated complaint: Fall@home 08/26 LT ear lesion Mode of Arrival: Ambulatory Source of Information: Patient and Spouse Limitations: No Limitations Time Seen by Provider: 08/26/22 11:10 Description of Symptoms (Recalled from Triage Doc. by RN): c/o left year laceration after hitting a door frame. History of Present Illness Provider Complaint: Patient states that she slipped and fell at home and hit her left ear against the door facing causing laceration to her left ear Denies any other injury Related Data Home Medications Medication Instructions Recorded Confirmed atorvastatin 40 mg tablet 40 mg PO DAILY High cholesterol 07/15/19 03/29/22 bisoprolol 5 1 tab PO DAILY High blood pressure 07/15/19 03/29/22 mg-hydrochlorothiazide 6.25 mg tablet escitalopram oxalate 10 mg tablet 10 mg PO DAILY Anxiety 07/15/19 03/29/22 metformin 500 mg tablet 500 mg PO DAILY Diabetes 07/15/19 03/29/22 Previous Rx's Medication Instructions Recorded hydrocodone 5 mg-acetaminophen 325 1 tab PO Q6HP PRN Moderate To 04/07/20 mg tablet Severe Pain #12 tabs prednisone 20 mg tablet 20 mg PO BID #10 tabs 04/07/20 phenazopyridine 200 mg tablet 200 pow PO TID #6 tabs 01/14/21 sulfamethoxazole 800 1 each PO BID 7 days #14 tabs 01/14/21 mg-trimethoprim 160 mg tablet oxycodone 5 mg tablet 5 mg PO Q6H PRN pain #12 tabs 03/27/22 Allergies Allergy/AdvReac Type Severity Reaction Status Date / Time No Known Allergies Allergy Verified 08/26/22 11:13 [facility] Disclaimer: The information cont
[2022-08-26 11:47] VITALS: BP 173/99; PULSE 74; RESP 18; TEMP 36.7; O2SAT 97
== END 2022-08-26 11:56 | disposition home or self-care (01) ==
PROVIDERS: Emergency Provider Nurse Practitioner; PCP Internal Medicine Adolescent Medicine
DX: S01.312A Laceration without foreign body of left ear, initial encounter (principal); W01.198A Fall on same level from slipping, tripping and stumbling with subsequent striking against other object, initial encounter
CPT/HCPCS: 12011; 90471; 90715; 99213; G0463

== ENCOUNTER 2022-09-02 10:06 | Emergency (ER) | payer BC, SELFPAY ==
[2022-09-02 10:10] VITALS: BP 161/81; PULSE 72; RESP 20; TEMP 36.8; O2SAT 94; BMI 25.7
[2022-09-02 10:18] VITALS: BP 161/81; PULSE 72; RESP 20; TEMP 36.8; O2SAT 94
== END 2022-09-02 10:20 | disposition home or self-care (01) ==
LOC: UTC 10:08
PROVIDERS: Emergency Provider Physician Assistant; PCP Internal Medicine Adolescent Medicine
DX: S01.312A Laceration without foreign body of left ear, initial encounter (principal); Z48.02 Encounter for removal of sutures

== ENCOUNTER → 2023-04-11 10:26 | Outpatient (POV) | payer BC, SELFPAY | PROVIDERS: PCP Internal Medicine Adolescent Medicine; Visit Provider Dermatology | DX: Z00.00 Encounter for general adult medical examination without abnormal findings (principal) ==

== ENCOUNTER 2023-07-12 12:23 | Outpatient (CLI) | payer BC, SELFPAY ==
--- NOTE | 2023-07-12 12:27 | XR_ITS ---
FINAL REPORT CLINICAL HISTORY: Left hip OSTEOARTHRITIS FINDINGS: AP and frog leg views of the left hip were obtained. There is no prior exam for comparison. There is no acute fracture or dislocation. There is advanced degenerative disease in the left hip with subchondral cysts in the acetabulum and femoral head. Soft tissues are within normal limits. IMPRESSION: Advanced degenerative changes without acute osseous abnormality of the left hip. If pain persists, MR is recommended. Reviewed, Interpreted and Dictated by Lakshmi Buckley MD Transcribed by Dahiana Cross Authenticated and . [facility]
--- NOTE | 2023-07-12 12:27 | XR_ITS ---
FINAL REPORT CLINICAL HISTORY: Right hip OSTEOARTHRITIS FINDINGS: AP and frog leg views of the right hip were obtained. There is no prior exam for comparison. There is no acute fracture or dislocation. There is degenerative joint disease, less severe than on the left. Soft tissues are within normal limits. IMPRESSION: Degenerative changes without acute osseous abnormality of the right hip. If pain persists, MR is recommended. Reviewed, Interpreted and Dictated by Lakshmi Buckley MD Transcribed by Dahiana Cross Authenticated and [facility]
== END 2023-07-12 23:59 ==
LOC: RAD 12:24
PROVIDERS: PCP Internal Medicine Adolescent Medicine; Visit Provider Internal Medicine Adolescent Medicine
DX: M16.0 Bilateral primary osteoarthritis of hip (principal)
CPT/HCPCS: 73502

== ENCOUNTER 2024-03-20 10:43 | Outpatient (CLI) | payer BC, SELFPAY ==
--- NOTE | 2024-03-20 10:47 | XR_ITS ---
FINAL REPORT CLINICAL HISTORY: .abnormal bowel sounds FINDINGS: ABDOMEN COMPLETE INCL CHEST The heart is normal in size. The mediastinum is unremarkable. There is mild bronchial wall thickening, may represent bronchitis. There is no pneumothorax. There is a nonspecific, nonobstructive bowel gas pattern. No abnormal dilatation is identified. There is a moderate amount of retained stool throughout the colon. There are degenerative changes in the spine and hips. There is no abnormal calcification. IMPRESSION: Bronchial wall thickening, may represent bronchitis. Reviewed, Interpreted and Dictated by Dillon Gotti III, MD Transcribed by Dinorah Musa Authenticated and [facility]
== END 2024-03-20 23:59 | disposition home or self-care (01) ==
LOC: RAD 10:44
PROVIDERS: PCP Internal Medicine Adolescent Medicine; Visit Provider Internal Medicine Adolescent Medicine
DX: R19.15 Other abnormal bowel sounds (principal)
CPT/HCPCS: 74021

== ENCOUNTER 2024-07-20 17:55 | Emergency (ER) | payer BC, SELFPAY ==
[2024-07-20 17:57] VITALS: BP 170/95; PULSE 54; RESP 18; TEMP 36.8; O2SAT 97; BMI 29.0
--- NOTE | 2024-07-20 18:10 | CT_ITS ---
PROCEDURE INFORMATION: Exam: CT Head Without Contrast Exam date and time: 07/20/2024 6:20 PM Age: 69 years old Clinical indication: Injury or trauma; Fall; Blunt trauma (contusions or hematomas); Additional info: Fall, head injury TECHNIQUE: Imaging protocol: Computed tomography of the head without contrast. Radiation optimization: All CT scans at this facility use at least one of these dose optimization techniques: automated exposure control; mA and/or kV adjustment per patient size (includes targeted exams where dose is matched to clinical indication); or iterative reconstruction. COMPARISON: MR HEAD/BRAIN WO CON 06/18/2019 9:34 AM FINDINGS: Brain: Mild cerebral and cerebellar atrophy. No hemorrhage. Symmetric hypoattenuation in the periventricular white matter. No mass or mass effect. Calcified pineal gland. Cerebral ventricles: Mild ventriculomegaly. Paranasal sinuses: Visualized sinuses are unremarkable. No fluid levels. Mastoid air cells: Visualized mastoid air cells are well aerated. Bones: Unremarkable. No acute fracture. Soft tissues: Small left frontal scalp contusion. IMPRESSION: 1. No acute intracranial abnormality. 2. Age-related cortical atrophy. 3. Hypoattenuation in the periventricular white matter, suspicious for small vessel ischemic disease. 4. Small left frontal scalp contusion.
--- NOTE | 2024-07-20 18:10 | CT_ITS ---
PROCEDURE INFORMATION: Exam: CT Maxillofacial Without Contrast Exam date and time: 07/20/2024 6:26 PM Age: 69 years old Clinical indication: Injury or trauma; Fall; Laceration; Nose; Not specified; Additional info: Fall, nose injury TECHNIQUE: Imaging protocol: Computed tomography of the face without contrast. Radiation optimization: All CT scans at this facility use at least one of these dose optimization techniques: automated exposure control; mA and/or kV adjustment per patient size (includes targeted exams where dose is matched to clinical indication); or iterative reconstruction. COMPARISON: CT HEAD/BRAIN WO CON 07/20/2024 6:20 PM FINDINGS: Limitations: Beam hardening artifact arising from the dental implants obscures adjacent structures. Paranasal sinuses: No air-fluid levels. Orbital cavities: Orbits are normal. Globes are unremarkable. Bones: No acute fracture. Soft tissues: There is a laceration in the soft tissues of the bridge of the nose. IMPRESSION: There is a laceration in the soft tissues of the bridge of the nose. There is no acute fracture.
--- NOTE | 2024-07-20 18:19 | HMH.EDGENADL ---
Discharge Plan Disposition Patient Disposition: Home, Self-Care Prescriptions Prescriptions: New ciprofloxacin HCl 750 mg tablet 750 mg PO BID 5 Days Qty: 10 0RF No Action escitalopram oxalate 10 mg tablet 10 mg PO DAILY memantine 10 mg tablet PO donepezil 10 mg tablet PO Referrals Follow up/Referrals: Osvaldo Omalley MD [Primary Care Provider] - See instructions Activity Restrictions/Add. Instructions Additional Instructions/Restrictions: Take ciprofloxacin as prescribed. Follow-up with [facility] for a specialist. You should get a call to schedule an appointment. Please return emerged part with any new, concerning, worsening symptoms including but not limited to signs concerning for infection including redness, swelling, discharge, fever. Your stitches will dissolve on their own. No need to get them removed. Clinical Impressions Clinical Impression: Head injury Qualifiers: Encounter type: initial encounter Qualified Code(s): S09.90XA - Unspecified injury of head, initial encounter Laceration of nose Qualifiers: Encounter type: initial encounter Qualified Code(s): S01.21XA - Laceration without foreign body of nose, initial encounter Instructions Patient Instructions: DI for Laceration Repair Print Language Print Language: Yoruba Discharge ED Provider: James Miller General Adult HPI General Chief complaint: Wound/Laceration Stated complaint: [id number] fall face lac, alzheimers Time Seen by Provider: 07/20/24 18:06 Mode of Arrival: Ambulatory Source of Information: Patient and Spouse Description of Symptoms (Recalled from ER Triage Doc. by RN): Patient presents ambulatory to triage. Patient states she fell at home striking her face on a wall sustaining a laceration to the bridge of her nose from her eye glasses. Flap noted to bridge of nose in triage with bleeding controlled. endorses a history of Alzhemier's. History of Present Illness HPI narrative: This is a 69-year-old female with a history of Alzheimer's dementia presenting with a mechanical fall and facial injury. States that she tripped over her cat and hit her face on the wall, cutting the bridge of her nose on her eyeglasses. No loss of conscious. No anticoagulation or aspirin use. Related Data Home Medications ?Medication ?Instructions ?Recorded ?Confirmed escitalopram oxalate 10 mg tablet 10 mg PO DAILY Anxiety 07/15/19 01/10/24 donepezil 10 mg tablet mg PO 01/10/24 01/10/24 memantine 10 mg tablet mg PO 01/10/24 01/10/24 Previous Rx's ?Medication ?Instructions ?Recorded ciprofloxacin HCl 750 mg tablet 750 mg PO BID 5 days #10 tabs 07/20/24 Allergies Allergy/AdvReac Type Severity Reaction Status Date / Time No Known Allergies Allergy Verified 01/10/24 09:58 [facility] Disclaimer: The information contained in this section may have been updated after the patient was seen, as this information can be updated by other users. Medical History Dislocation of right elbow Family History Other No significant family history Social History Smoking Status: Unknown if ever smoked alcohol intake: never current occupational status: retired Travel in the last 8 weeks: None housing: house Have you lived/traveled outside [place] in past 30 days?: No Contact w/someone who lives/traveled outside US past 30 days?: No Exposure to someone with infectious disease in past 14 days?: No Do you have a fever (greater than 100.4 F or 38 C)?: No Have you tested positive for COVID-19: No Exposed to someone with COVID-19 in past 14 days?: No Do you have a sore throat?: No Do you have a cough?: No Do you have any weakness?: No Do you have any diarrhea?: No Are you experiencing any unusual bleeding?: No Do you have any muscle aches/pain?: No Do you have any abdominal pain?: No Are you experiencing loss of taste or smell?: No Other Medical History Have you received the Flu Vaccine for this season: Yes Have you received the Pneumonia Vaccine: Yes ROS Obtained: Yes All systems reviewed & no additional complaints except as documented Physical Exam General General appearance: alert and in no apparent distress Head Head exam: other (Abrasion to forehead. Laceration/flap to the bridge of the nose, about 2.5 cm. Cartilage exposed.) Eye Eye exam: Present normal appearance, PERRL and EOMI Respiratory Respiratory exam: Present normal lung sounds bilaterally; Absent respiratory distress Cardiovascular Cardiovascular exam: Present regular rate and normal rhythm Abdominal Exam Abdominal exam: Present soft and distention; Absent tenderness, guarding or rebound Extremities Exam Extremities exam: Present normal inspection Neurological Exam Neurological exam: Present alert and oriented X3 Skin Skin exam: Present warm and dry Medical Decision Making Medical Records Medical records reviewed: Yes I reviewed the patient's medical records. Screening: Per USPSTF and CDC recommendations, given the prevalence of disease in our region, it is our hospital?s policy to screen for HIV and viral Hepatitis for all patients aged 18 and over and those with ongoing risk factors. Dusty Inquiry Pt receiving controlled substance: No Vital Signs: 07/20/24 17:57 07/20/24 19:00 07/20/24 19:30 Temperature 98.2 F Temperature Source Oral Pulse Rate 69 69 Pulse Rate [Radial] 54 L Respiratory Rate 18 Blood Pressure 145/93 H 164/94 H Blood Pressure [R Arm] 170/95 H Blood Pressure Mean [R Arm] 120 Blood Pressure Source [R Arm] Automatic Cuff 02 Sat by Pulse Oximetry 97 97 97 Oxygen Delivery Method Room Air 07/20/24 19:59 Temperature 98.2 F Temperature Source Oral Pulse Rate 63 Pulse Rate [Radial] Respiratory Rate 18 Blood Pressure 162/89 H Blood Pressure [R Arm] Blood Pressure Mean [R Arm] Blood Pressure Source [R Arm] 02 Sat by Pulse Oximetry Oxygen Delivery Method Room Air Orders (Tests/Meds): ED MEDICATIONS Discontinued Medications Generic Name Dose Route Start Last Admin Trade Name Freq PRN Reason Stop Dose Admin Cefazolin Sodium 2 gm 07/20/24 18:10 07/20/24 19:09 Cefazolin 2gm Vial IV 07/20/24 18:11 2 gm ONCE ONE Administration Levofloxacin 750 mg 07/20/24 19:51 07/20/24 20:03 Levofloxacin 750 Mg Tablet PO 07/20/24 19:52 750 mg ONCE ONE Administration Lidocaine HCl 10 ml 07/20/24 18:55 07/20/24 19:10 Lidocaine 1% 10ml Mdv IJ 07/20/24 18:56 10 ml ONCE ONE Administration Lidocaine/Epinephrine 20 ml 07/20/24 18:11 Lidocaine 1% W/Epi 1:100,000 20ml Vial IJ 07/20/24 18:12 ONCE ONE Tetanus/Reduced Diphtheria/Acell Pertussis 0.5 ml 07/20/24 18:10 07/20/24 18:51 Tet/Diphth/Pert-Adult 0.5ml Syringe IM 07/20/24 18:11 Not Given .ONCE ONE ORDERS Category Date Time Status CT facial bones wo con Stat Cat Scan 07/20/24 18:[address] head/brain wo con Stat Cat Scan 07/20/24 18:10 Completed Medical Decision Narrative: In summary, this 69-year-old female with a history of Alzheimer's dementia presents to the emergency department today with head/facial injury. On initial evaluation patient is afebrile, he medically stable, nontoxic-appearing, at her baseline mental status. Differential diagnosis includes but is not limited to intracranial hemorrhage, nasal bone fracture, soft tissue injury. Based on these concerns, I ordered CT head, CT face. C-spine clinically cleared by Nexus criteria. Patient received Tdap and Ancef for treatment. CT imaging personally interpreted demonstrates no acute intracranial pathology or nasal bone fractures. Patient had cartilage exposed so I had an interactive discussion and consulted on-call face surgeon at [facility] so patient would have close follow-up after repair. They reviewed patient's imaging and agree that there were no open fractures. Recommended closure in the ER as planned and treatment with ciprofloxacin. They would schedule the patient for a follow-up appointment during the coming week. Laceration was repaired and patient was ultimately discharged in stable condition. Procedures Laceration Laceration 1: Site: face (nose) Size (cm): 5.0 Description: other (flap, rectangular) Depth: involves subcutaneous layer (Cartilage exposed) Local Anesthetic: lidocaine 1% Amount of anesthesia used (mL): 4 Pre-repair: wound explored and irrigated extensively Skin layer closed with: other (Fast-gut) Size (cm): 5-0 Number of sutures: 7 Technique: simple, interrupted Critical Care Critical Care Time Critical Care Time: No
--- NOTE | 2024-07-20 18:30 | PC.NURSE ---
PT RETURNED FROM CT
--- NOTE | 2024-07-20 18:53 | PC.NURSE ---
Called [facility] per Dr. Miller for a consult with either ENT or Plastic Surgeon. [facility] stated that they would give us a callback.
[2024-07-20 19:00] VITALS: BP 145/93; PULSE 69; O2SAT 97
[2024-07-20] MEDS: CEFAZOLIN 2GM VIAL 2 GM IV (19:09)
[2024-07-20] MEDS: LIDOCAINE 1% 10ML MDV 10 ML IJ (19:10)
[2024-07-20 19:30] VITALS: BP 164/94; PULSE 69; O2SAT 97
[2024-07-20 19:59] VITALS: BP 162/89; PULSE 63; RESP 18; TEMP 36.8; O2SAT 96
[2024-07-20] MEDS: levoFLOXacin 750 MG TABLET PO (20:03)
== END 2024-07-20 20:11 | disposition home or self-care (01) ==
PROVIDERS: Emergency Provider Student in an Organized Health Care Education/Training Program; PCP Internal Medicine Adolescent Medicine
DX: S01.21XA Laceration without foreign body of nose, initial encounter (principal); S09.90XA Unspecified injury of head, initial encounter; W01.198A Fall on same level from slipping, tripping and stumbling with subsequent striking against other object, initial encounter; Y93.89 Activity, other specified; Y92.9 Unspecified place or not applicable
CPT/HCPCS: 12013; 70450; 70486; 96374; 99284; J0690

== ENCOUNTER 2025-04-16 11:29 | Outpatient (CLI) | payer BC, SELFPAY ==
--- OUTSIDE RECORDS SUMMARY | 2025-04-16 11:34 | XMS_ITS | Encounter Summary ---
Author Organization Healthcare Address [address] [place] [address] Care Team Providers Care Raking Machine Operator Name Role Phone Osvaldo Omalley MD Primary Care Provider [phone] Reason for Visit * Reason Onset Date Comments Med Refill 04/07/2025 Encounter Details Date Type Department Care Team (Late st Contact Info) Description [facility]/07[facility] [address] [place] [address] Vaishnavi De Paz, PA [address] [place] [address] Alzheimer's dementia of other onset, with agitation, unspecified dementia severity (CMS/HCC) Social History Tobacco Use Types Packs/Day Years Used Date Smoking Tobacco: Never Smokeless Tobacco: Never Alcohol Use Standard Drinks/Week Comments Never 0 (1 standard drink = 0.6 oz pur e alcohol) PHQ-2 Answer Date Recorded Patient Health Questionnaire-2 Score 0 05/30/2023 Comments Unknown Sex and Gender Information Value Date Recorded Sex Assigned at Not on file Legal Sex Female 8:06 PM EDT Gender Identity Not on file Sexual Orientation Not on file documented as of this encounter Miscellaneous Notes * Telephone Encounter - Silvia Palencia, PharmD - 04/07/2025 12:59 PM EST 1 medication(s) has been approved per protocol. documented in this encounter Plan of Treatment Upcoming Encounters Date Type Department Care Team (Late st Contact Info) Description 07/01/2025 11:00 AM EST Office Visit [facility] [place] [address] [place] [address] Vaishnavi De Paz, PA [address] [place] [address] documented as of this encounter Visit Diagnoses Diagnosis Alzheimer's dementia of other onset, with agitation, unspecified dementia severity (CMS/HCC) documented in this encounter Additional Health Concerns Assessment Noted Time A fall risk assessment has been complete d for the patient 12/24/2024 11:03 AM EDT A Body Mass Index follow-up plan has been documented for the patient 12/26/2024 1:25 PM EDT documented as of this encounter Care Teams Raking Machine Operator Relationship Specialty Start Date End Date Osvaldo Omalley MD [address] [place] [address] PCP - General Internal Medicine 09/29/21 documented as of this encounter
--- OUTSIDE RECORDS SUMMARY | 2025-04-16 11:34 | XMS_ITS | Encounter Summary ---
Author Organization Healthcare Address [address] [place] [address] Care Team Providers Care Lead Oxide Mill Tender Name Role Phone Osvaldo Omalley MD Primary Care Provider [phone] Reason for Visit * Reason Comments Med Refill Encounter Details Date Type Department Care Team (Late Contact Info) Description 01/06/2025 Refill [facility] - [facility] [address] [place] [address] Yadira Tucker MD [address] [facility] [address] [place] [address] Alzheimer's dementia of other onset, with agitation, [...] on file documented as of this encounter Plan of Treatment Upcoming Encounters Date Type Department Care Team (Late Contact Info) Description 07/01/2025 11:00 AM EST [facility] [address] Vaishnavi De Paz, PA [address] [place] [address] documented as of this encounter [...] documented as of this encounter Care Teams Lead Oxide Mill Tender Relationship Specialty Start Date End Date Osvaldo Omalley MD [address] [place] [address] PCP - General Internal Medicine 09/29/21 documented as of this encounter
--- OUTSIDE RECORDS SUMMARY | 2025-04-16 11:34 | XMS_ITS | Encounter Summary ---
Author Organization [facility] Address [address] [place] [address] Care Team Providers Care Automatic Blocker Name Role Phone Osvaldo Omalley MD Primary Care Provider [phone] Encounter Details Date Type Department Care Team (Late st Contact Info) Description 10/07/2015 Conversion Encounter [facility] HISTORICAL CONV [address] [place] [address] Interface, See Report Social History Tobacco Use Types Packs/Day Years Used Date Smoking Tobacco: Never Assessed Comments Unknown Sex and Gender Information Value Date Recorded Sex Assigned at Not on file Legal Sex Female 10:30 AM EDT Gender Identity Not on file Sexual Orientation Not on file documented as of this encounter Progress Notes * Interface, See Report - 10/07/2015 12:00 AM EDT Gynecologic Oncology [facility] [place] [address] PHONE: [phone] FAX: [phone] Patient: LINDA DEL CID MR #: [id number] : 1955 Date of Visit: 10/07/2015 Referring Physician: GABO SHAH Dictated By: Sue Ibrahim APRN Diagnosis: H/O COMPLICATED GESTATION TROPHABLASTIC DISEASE Allergies: NKDA History of present illness: ANNUAL. [age] yo female here for annual exam with a history of gestational trophoblastic disease. She is feeling well today. Her bowels and bladder are working well and she denies vaginal bleeding or pelvic pain. She has recently gone PRN and is keeping her grandchildren through the week. Her mammogram is UTD as well as her colonoscopy. She has not had a BMD since 2007, but is interested in having this repeated for screening. Present family and/or social history: Family history: FATHER- DE; PGM- BLOOD DISORDER . Social history: Tobacco Y N PPD ETOH Y N # Drinks Marital Status Occupation Past medical history: Medical: GERD, HIGH LIPIDS . Surgical: YUNG, LSO . Health maintenance: Last Mammogram: 09/10/2015 History of abnormality? Yes No Last Colonoscopy: 2013 Ordering MD: CRYSTAL How often: 5YRS Last two Pap Smear dates: 09/04/13 History of Pap Smear Abnormality? No Yes - Results: Tumor Marker: CT Scan: BMD: 2007 Ultrasound: Review of systems: Constitutional: No change in weight, no excessive fatigue Psychiatric: No history of anxiety, depression, bipolar disorder, or insomnia Eyes: +GLASSES. Ears, Nose, Mouth, Throat: +SINUS. Hearing normal, no swallowing difficulties, no sore throat Endocrine: No history of diabetes, thyroid disease, heat/cold intolerance Lymphatic: No enlarged lymph nodes Respiratory: No shortness of breath, cough, asthma, wheezing Cardiovascular: +HIGH LIPIDS. No angina, orthopnea, edema, hypertension, murmur, Gastrointestinal: +GERD. No constipation or diarrhea, nausea, or vomiting Genitourinary: No dysuria, hematuria, urgency, or frequency Neurologic: No numbness, weakness, syncope, seizures, or headaches Musculoskeletal: No muscle weakness, or joint pain Integumentary: No new skin lesions Gynecologic: +HX COMP GESTATIONAL TROPH DZ. No abnormal bleeding, vaginal discharge, pelvic pain, of h/o abnml pap smears LMP: P: 2 Vag Deliveries: 2 C-sec: Misc: Hematologic: No history of anemia, easy bruising, or blood clots Medications: Medication Reconciliation for the patient has been reviewed in the EMR. Physical exam: Constitutional: Weight 181 Height BP 152/90 Pulse 87 Temp 98.5 Neurological/Psychiatric: HEENT: Neck: Respiratory: Cardiovascular: Breasts: Gastrointestinal: Lymphatic: Extremities: Skin: Gynecologic: External Genitalia: Vagina: Cervix: Uterus: Ovaries: Parametria: Smooth. Rectovaginal: Hemoccult: ECOG Performance Status: 0=Fully active, able to carry on all pre-disease performance without restriction Procedure note: Assessment: Annual Well Woman Exam H/O Gestational Trophoblastic Disease Plan: Mamm/Colonoscopy UTD BMD ordered for repeat baseline exam. Will call pt when results received. Pt instructed to call with new complaints of vaginal bleeding, pelvic pain, change in bowel or bladder function, vaginal discharge, or any new symptoms for evaluation of complaints. RTC Electronically Signed By: Sue Ibrahim APRN Date: 10/07/2015 Time: 10:04 AM cc: documented in this encounter Plan of Treatment Upcoming Encounters Date Type Department Care Team (Late st Contact Info) Description 06/16/2025 11:00 AM EST Appointment [address] [address] documented as of this encounter Visit Diagnoses Not on filedocumented in this encounter Care Teams Automatic Blocker Relationship Specialty Start Date End Date Osvaldo Omalley MD [address] [facility] [address] [place] [address] PCP - General Adolescent Medicine 03/18/22 documented as of this encounter
--- OUTSIDE RECORDS SUMMARY | 2025-04-16 11:34 | XMS_ITS | Clinical Summary ---
Author Organization Healthcare Address [address] [place] [address] Care Team Providers Care Social Services Assistant Name Role Phone Osvaldo Omalley MD Primary Care Provider [phone] Allergies No known active allergies Medications escitalopram (Lexapro) 20 MG tabletIndication s:Alzheimer's dementia of other onset, with agitation, unspecified dementia severity (CMS/HCC) Take 1 tablet (20 mg) by mouth 1 (one) time each day in the morning. 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 180 tablet 3 5 12/25/19 26 Active memantine (Namenda) 10 MG tablet TAKE 1 TABLET BY MOUTH TWICE DAILY 180 tablet 2 5 Active donepezil (Aricept) 10 MG tabletIndication s:Alzheimer's dementia of other onset, with agitation, unspecified dementia severity (CMS/HCC) Take 1 tablet by mouth nightly. 90 tablet 5 Active donepezil (Aricept) 10 MG tabletIndication s:Alzheimer's dementia of other onset, with agitation, unspecified dementia severity (CMS/HCC) TAKE 1 TABLET BY MOUTH 1 (ONE) TIME EACH DAY. 90 tablet 2 04/07/20 25 Discontinu ed(Reorder ) Active Problems Problem Noted Date Diagnosed Date Cognitive decline 08/26/2021 Encounters Date Type Department Care Team Description 04/07/2025 Refill [facility] [address] [place] [address] Vaishnavi De Paz PA Alzheimer's dementia of other onset, with agitation, unspecified dementia severity (CMS/HCC) from Last 3 Months Immunizations Immunization Administration Dates Next Due Influenza, injectable, quadrivalent 03/02/2018,1 Influenza, injectable, quadrivalent, preservativ e free 03/02/2020,03/13/2019 Moderna COVID-19 Vaccine ([employer]) 12+ years ,06/03/2020 Pneumococcal Polysaccharide PPV23 06/04/2020 Family History Medical History Relation Name Comments Parkinsonism Mother's Sister Chelly Martino Relation Name Status Comments Mother's Sister Chelly Martino Alive Social History Tobacco Use Types Packs/Day Years Used Date Smoking Tobacco: Never Smokeless Tobacco: Never Tobacco Cessation:Counseling Given: Not Answered Alcohol Use Standard Drinks/Week Comments Never 0 (1 standard drink = 0.6 oz pur e alcohol) PHQ-2 Answer Date Recorded Patient Health Questionnaire-2 Score 0 05/30/2023 Comments Unknown Sex and Gender Information Value Date Recorded Sex Assigned at Not on file Legal Sex Female 8:06 PM EDT Gender Identity Not on file Sexual Orientation Not on file Last Filed Vital Signs Vital Sign Reading Time Taken Comments Blood Pressure 131/85 12/24/2024 11:01 AM EDT Pulse 75 12/24/2024 11:01 AM EDT Temperature - - Respiratory Rate 18 12/24/2024 11:01 AM EDT Oxygen Saturation 95% 12/24/2024 11:01 AM EDT Inhaled Oxygen Concentration - - Weight 79.2 kg (174 lb 8 oz) 12/24/2024 11:01 AM EDT Height 162.6 cm (5' 4 ) 12/24/2024 11:01 AM EDT Body Mass Index 29.95 12/24/2024 11:01 AM EDT Plan of Treatment Upcoming Encounters Date Type Department Care Team (Late st Contact Info) Description 07/01/2025 11:00 AM EST [facility] [address] [place] [address] Vaishnavi De Paz, PA [address] [place] [address] Health Maintenance Due Date Last Done Comments [facility]-Hepatitis C Screening 1955 [facility]-/Child/Adol SDOH Screenings 1955 [facility]- SDOH Screenings 1972 [facility]-Adult SDOH Screenings 1972 CT Colonography 1999 Colonoscopy 1999 FIT-DNA 1999 FIT 1999 FOBT 1999 Sigmoidoscopy 1999 [facility]-Colorectal Cancer Screening 1999 [facility]-Zoster Vaccines (1 of 2) 2004 [facility]-Bone Density Scan 01/18/2018 01/19/2016 [facility]-Pneumococcal Vaccine: 50+ Years (2 of 2 - PCV) 06/04/2021 06/04/2020 [facility]-Depression Screening 05/30/2024 05/30/2023 [id number] Vaccine ( season) 2025 03/20/2024, 03/03/2023, 02/23/2022, Additional history exists [facility]-Influenza Vaccine (#1) 01/13/202503/04, 03/01/2023, 02/21/2022, Additional history exists [facility]-Breast Cancer Screening 03/27/202603/15, 03/27/2024, 03/21/2023, Additional history exists [facility]-RSV Vaccine: 60+ Years or (1 - 1-dose 75+ series) 2029 [facility]-DTaP,Tdap,and Td Vaccines (2 - Td or Tdap) 08/26/2032 08/26/2022 [facility]-Obesity Intervention Completed 025, 10/01/2024, 07/26/2024, Additional history exists HPV Vaccines Aged Out No longer eligi ble based on patient's age to complete this topic [facility]-HIB Vaccines Aged Out No longer e ligible based on patient's age to complete this topic [facility]-Hepatitis A Vaccines Aged Out No longer eligible based on patient's age to complete this topic [facility]-IPV Vaccines Aged Out No longer e ligible based on patient's age to complete this topic [facility]-Rotavirus Vaccines Aged Out No lo nger eligible based on patient's age to complete this topic Insurance [place] [id number] MEDICARE [facility] Advance Directives Documents on File Type Date Recorded 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
--- OUTSIDE RECORDS SUMMARY | 2025-04-16 11:34 | XMS_ITS | Encounter Summary ---
Author Organization [facility] Address [address] [place] [address] Care Team Providers Care Attending Anesthesiologist Name Role Phone Osvaldo Omalley MD Primary Care Provider [phone] Encounter Details Date Type Department Care Team (Late st Contact Info) Description 04/25/2012 Conversion Encounter [facility] HISTORICAL CONV [address] [place] [address] Interface, See Report Social History Tobacco Use Types Packs/Day Years Used Date Smoking Tobacco: Never Assessed Comments Unknown Sex and Gender Information Value Date Recorded Sex Assigned at Not on file Legal Sex Female 10:30 AM EDT Gender Identity Not on file Sexual Orientation Not on file documented as of this encounter Progress Notes * Interface, See Report - 04/25/2012 12:00 AM EST Patient: LINDA DEL CID MR #: : [id number] Date of Visit: 04/25/2012 A ttending Physician: Sue Ibrahim Dictated By: JANELLE MARX Referring Physician: Diagnosis: ANNUAL WWE Allergies: NKDA Chief complaint: LEG TWITCHES, R HIP AND KNEE PAIN History of present illness: Here for annual exam. Some c/o leg pain occassionally associated with long shifts worked. No bleeding or spotting. No pelvic pain or discomfort. No bowel or bladder c/o. Present family and/or social history: Family history: No change in family history from prior visit. Social history: Tobacco Y N PPD ETOH Y N # Drinks Marital Status Occupation Past medical history: Medical: No changes in medical history from prior visit. Surgical: No new surgical procedures from prior visit. Health maintenance: Mammogram: Colonoscopy: Pap smear: 04/25/12 Tumor Marker: CT Scan: BMD: Review of systems: Constitutional: No change in weight, no excessive fatigue Psychiatric: No history of anxiety, depression, bipolar disorder, or insomnia Eyes: + GLASSES, Vision unchanged Ears, Nose, Mouth, Throat: + SINUS, Hearing normal, no swallowing difficulties, no sore throat Endocrine: No history of diabetes, thyroid disease, heat/cold intolerance Lymphatic: No enlarged lymph nodes Respiratory: No shortness of breath, cough, asthma, wheezing Cardiovascular: No angina, orthopnea, edema, hypertension, murmur, hyperlipidemia Gastrointestinal: + GERD, No constipation or diarrhea, nausea, or vomiting Genitourinary: No dysuria, hematuria, urgency, or frequency Neurologic: No numbness, weakness, syncope, seizures, or headaches Musculoskeletal: No muscle weakness, or joint pain Integumentary: No new skin lesions Gynecologic: No abnormal bleeding, vaginal discharge, pelvic pain, of h/o abnml pap smears LMP: P: 2 Vag Deliveries: 2 C-sec: Hematologic: No history of anemia, easy bruising, or blood clots Medications: See documented medication list. Physical exam: Constitutional: Weight 181 [place] 63 [place] [address] Pulse Temp Neurological/Psychiatric: HEENT: Neck: Respiratory: Cardiovascular: Breasts: Gastrointestinal: , round, large well healed vertical scar Lymphatic: Extremities: Skin: Gynecologic: External Genitalia: Vagina: Cervix: Uterus: Ovaries: Parametria: Smooth. Rectovaginal: Hemoccult: Procedure note: Assessment: Annual Well Woman Exam Plan: Mamm today RTC Approved by: Sue Ibrahim 2:01 PM , 04/25/2012 cc: documented in this encounter Plan of Treatment Upcoming Encounters Date Type Department Care Team (Late st Contact Info) Description 06/16/2025 11:00 AM EST Appointment [address] [address] documented as of this encounter Visit Diagnoses Not on filedocumented in this encounter Care Teams Attending Anesthesiologist Relationship Specialty Start Date End Date Osvaldo Omalley MD [address] [place] [facility] [address] [facility] [place] [address] PCP - General Adolescent Medicine 03/18/22 documented as of this encounter
--- OUTSIDE RECORDS SUMMARY | 2025-04-16 11:34 | XMS_ITS | Encounter Summary ---
Author Organization Healthcare Address [address] [place] [address] Care Team Providers Care Sample Cutter Name Role Phone Osvaldo Omalley MD Primary Care Provider [phone] Reason for Visit * Reason Comments Med Refill Encounter Details Date Type Department Care Team (Late st Contact Info) Description 03/16/2023 Refill [facility] [place] [facility] [address] [place] [address] Sue Otero PA [address] [place] [address] Social History Tobacco Use Types Packs/Day Years Used Date Smoking Tobacco: Never Smokeless Tobacco: Never Alcohol Use Standard Drinks/Week Comments Never 0 (1 standard drink = 0.6 oz pur e alcohol) PHQ-2 Answer Date Recorded Patient Health Questionnaire-2 Score 0 03/31/2022 Comments Unknown Sex and Gender Information Value Date Recorded Sex Assigned at Not on file Legal Sex Female 8:06 PM EDT Gender Identity Not on file Sexual Orientation Not on file documented as of this encounter Miscellaneous Notes * Telephone Encounter - Sue Otero PA - 03/17/2023 8:12 AM EDT Sent corrected rx documented in this encounter Plan of Treatment Upcoming Encounters Date Type Department Care Team (Late st Contact Info) Description 07/01/2025 11:00 AM EST [facility] [address] [place] [address] Vaishnavi De Paz, [place] [address] [place] [address] documented as of this encounter Visit Diagnoses Not on filedocumented in this encounter Additional Health Concerns Assessment Noted Time A fall risk assessment has been complete d for the patient 03/31/2022 10:17 AM EST A Body Mass Index follow-up plan has been documented for the patient 08/18/2022 4:05 PM EDT documented as of this encounter Care Teams Sample Cutter Relationship Specialty Start Date End Date Osvaldo Omalley MD [address] [place] [address] [address] [place] [address] PCP - General Internal Medicine 09/29/21 documented as of this encounter
--- OUTSIDE RECORDS SUMMARY | 2025-04-16 11:34 | XMS_ITS | Clinical Summary ---
Author Organization [facility] Address [address] [place] [address] Care Team Providers Care Shellfish Farming Supervisor Name Role Phone Osvaldo Omalley MD Primary Care Provider [phone] Allergies No known active allergies Medications donepezil (ARICEPT) 10 MG tablet Take 10 mg by mouth Every Morning. Active memantine (NAMENDA) 10 MG tablet Take 10 mg by mouth 2 (Two) Times a Day. Active oxyCODONE (ROXICODONE) 5 MG immediate release tablet Take 1 tablet by mouth Every 4 (Four) Hours As Needed for Moderate Pain. 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 Well female exam with routine gynecological exam 10/11/2016 Right ovarian cyst 08/08/2016 Overview (08/08/2016): Recurrent right ovarian cyst Immunizations Immunization Administration Dates Next Due COVID-19 (UNSPECIFIED) 10/25/2021,03/24/2021,,06/03/2020 Family History Medical History Relation Name Comments Heart attack Father Clotting disorder Paternal Grandmother Breast cancer Neg Hx Ovarian cancer Neg Hx Relation Name Status Comments Father Paternal Grandmother Social History Tobacco Use Types Packs/Day Years Used Date Smoking Tobacco: Never Tobacco Cessation:Counseling Given: Not Answered Alcohol Use Standard Drinks/Week Comments No 0 (1 standard drink = 0.6 oz pur e alcohol) Abuse Screen Answer Date Recorded Feels Unsafe at Home or Work/School no 04/11/2022 Feels Threatened by Someone no 03/16 Does Anyone Try to Keep You From Having Contact with Others or Doing Things Outside Your Home? no 04/11/2022 Physical Signs of Abuse Present no 04/11/2022 Housing Stability Answer Date Recorded Current Living Arrangements home 03/16 Potentially Unsafe Housing Conditions Not on aaron e 04/11/2022 Disabilities Answer Date Recorded Difficulty Concentrating, Remembering or Making Decisions no 04/11/2022 Difficulty Managing Errands Independently no 04/11/2022 Education Answer Date Recorded Help with school or training? Not on file Preferred Language Haitian 04/06/2022 Comments No Sex and Gender Information Value Date Recorded Sex Assigned at Not on file Legal Sex Female 10:30 AM EDT Gender Identity Not on file Sexual Orientation Not on file Last Filed Vital Signs Vital Sign Reading Time Taken Comments Blood Pressure 166/116 04/11/2022 7:00 PM EST Pulse 79 04/11/2022 7:00 PM EST Temperature 36.4 C (97.6 F) 04/11/2022 6:45 PM EST Respiratory Rate 14 04/11/2022 6:45 PM EST Oxygen Saturation 98% 04/11/2022 7:00 PM EST Inhaled Oxygen Concentration - - Weight 67.9 kg (149 lb 11.1 oz) 04/11/2022 2:36 PM EST Height 162.6 cm (5' 4.02 ) 04/11/2022 2:36 PM ES T Body Mass Index 25.68 04/11/2022 2:36 PM EST Plan of Treatment Upcoming Encounters Date Type Department Care Team (Late st Contact Info) Description 06/16/2025 11:00 AM EST Appointment [address] [address] Health Maintenance Due Date Last Done Comments COLOGUARD 1999 COLON CANCER SCREENING 5 YEA R SIGMOIDOSCOPY 1999 CT COLONOGRAPHY 1999 FECAL OCCULT BLOOD TEST 1999 FIT Testing (1 year) 1999 ZOSTER VACCINE (1 of 2) 2004 ANNUAL WELLNESS VISIT 10/12/2016 HEPATITIS C SCREENING 10/12/2016 DXA SCAN 01/18/2018 01/19/2016 COLONOSCOPY 05/15/2018 05/15/2013 COLORECTAL CANCER SCREENING 05/15/2018 Pneumococcal Vaccine 50+ (2 of 2 - PCV) 06/04/2021 06/04/2020 INFLUENZA VACCINE 12/13/2024 03/01/2023, , 03/02/2020, Additional history exists COVID-19 Vaccine (2024-2 6 season) 2025 03/03/2023, 02/23/2022, 10/25/2021, Additional history exists MAMMOGRAM 03/27/2026 03/27/2024, 11/2022, 03/18/2022, Additional history exists TDAP/TD VACCINES (2 - Td or Tdap) 08/26/2032 023 HEMOGLOBIN A1C Discontinued 04/06/2022 Medical Devices Implanted Type Area Manager Delivery Device Identifier Shelf Expiration Date Model / Serial / Lot Stem Rad Align Ti [id number] - [id number] Implanted:Qty: 1 on 04/11/2022 by Krunal George MD at [facility] Implant Right: Elbow [employer]KELET[employer] [id number] / / [id number] Sut/Anch Gryphon/P Br W/Dynacord - [id number] Implanted:Qty: 1 on 04/11/2022 by Krunal George MD at [facility] Implant Right: Elbow DEPUY MITEK 06/14/2024 [id number] / / [id number] Hd Rad Lockscrw Align 18mm - [id number] Implanted:Qty: 1 on 04/11/2022 by Krunal George MD at [facility] Implant Right: Elbow SKELET[employer]YNAM[employer] [id number] / / [id number] Sut/Anch Gryphon/P Br W/Dynacord - [id number] Implanted:Qty: 1 on 04/11/2022 by Krunal George MD at [facility] Implant Right: Elbow DEPUY MITEK 06/14/2024 [id number] / / [id number] Procedures Procedure Name Priority Date/Time Associated Diagnosis Comments MAMMO SCREENING DIGITAL TOMOSYNTHESIS BILATERAL W CAD Routine 03/27/2024 10:14 AM EST Screening mammogram for breast cancer HEMOGLOBIN A1C Routine 04/06/2022 2:27 PM EST DEXA BONE DENSITY AXIAL Routine 01/19/2016 9:30 AM EDT Menopausal symptom from Last 3 Months or Most Recently Relevant to Health Maintenance Results * Mammo Screening Digital Tomosynthesis Bilateral With CAD (03/27/2024 10:14 AM EST) Anatomical Region Laterality Modality Breast N/A Mammography 04/03/2024 6:12 PM EST Impressions 04/03/2024 6:12 PM EST No findings suspicious for malignancy. ACR BI-RADS CATEGORY: 1, NEGATIVE RECOMMENDATION: Yearly mammogram, yearly clinical breast exam, and encourage self breast awareness. CAD was used. The standard false negative rate of mammography is between 10% and 25%. Complex patterns or increased breast density will markedly elevate the false negative rate of mammography. A letter, in lay terminology, with the results of this exam will be mailed to the patient. At our facility, a triangular marker is positioned over a palpable area of concern indicated by the patient. A morongo marker is placed over a visible skin lesion. A linear marker indicates a scar. If there is a palpable area of concern, biopsy should be considered regardless of imaging findings. This report was finalized on 04/03/2024 6:[address] Etelvina Mac MD. Narrative 04/03/2024 6:12 PM EST DIGITAL SCREENING MAMMOGRAM WITH TOMOSYNTHESIS HISTORY: Routine screening. IMAGE COMPARISON: 03/21/2023, 03/18/2022, 03/16/2021, 03/14/2020. TECHNIQUE: Low dose full field digital breast tomosynthesis imaging was performed with 2D and 3D acquisitions consisting of bilateral CC and MLO views. FINDINGS: There are scattered areas of fibroglandular density. The fibroglandular pattern appears stable. There is no mass, worrisome microcalcifications, or architectural distortion to suggest development of malignancy. us Osvaldo Omalley MD IMG MAMMOGRAPHY ORDERABLES F inal Result * Hemoglobin A1c (04/06/2022 2:27 PM EST) Hemoglobin A1C 5.60 4.80 - 5.60 % 04/06/2022 3:20 PM EST [facility] Blood Venipuncture / Unknown 04/06/2022 2:27 PM EST 04/06/2022 3:02 PM EST Narrative [facility] - 04/06/2022 3:20 PM EST Hemoglobin A1C Ranges: Increased Risk for Diabetes 5.7% to 6.4% Diabetes >= 6.5% Diabetic Goal < 7.0% us Krunal Goerge MD LAB BLOOD ORDERABLES Jessica l Result [facility]
[address] [place] [address], * dexa bone density axial (01/19/2016 9:30 AM EDT) Anatomical Region Laterality Modality Wrist, Hip, L-spine N/A Other 01/20/2016 3:33 PM EDT Impressions 01/20/2016 3:35 PM EDT The patient has normal bone mass. This is according to criteria established by the World Health Organization. All the treatment decisions require clinical judgment and consideration of individual patient factors, including patient preferences, co-morbidities, previous drug use, risk factors not captured in the FRAX model (frailty, falls, vitamin D deficiency, increased bone turnover, interval significant decline in bone density) and possible under or over estimation of fracture risk by FRAX. Approaches to reduce osteoporosis related fracture risk include optimizing calcium and vitamin D status, appropriate weight bearing exercises and fall-prevention measurements. The National Osteoporosis Foundation recommends (http://www.nof.org/hcp/practice/gufnplkz-axe-hkqcwhsc-guidelines/clinic ans-guide) that FDA-approved medical therapies be considered in postmenopausal women and men aged equal or greater than 50 years with : a) hip or vertebral (clinical or morphometric) fracture; b) T-score of -2.5 or less at the spine or hip; c) Ten-year fracture probability by FRAX of greater than 3% for hip fracture of greater than 20% for major osteoporotic fracture. Secondary causes of bone loss should be evaluated if clinically indicated since the etiology of low BMD cannot be determined by BMD measurement alone. FOLLOWUP: Consider repeating the study in 2-3 years to reassess the patient's status or sooner if there is some new clinical indication. INTERVAL CHANGE: Compared to the prior exam done on 08/21/2001 there has been a statistically significant -2.9% change for measurements involving the lumbar spine. There has been no statistically significant change for measurements involving the left total hip. At this facility, the least significant change in the BMD at the left\right hip with 95% confidence is 0.008752 gm/cm2 and and 0.623612 g/cm2 at the lumbar spine. This report was finalized on 01/20/2016 3:[address] Etelvina Mac MD. Narrative 01/20/2016 3:35 PM EDT DUAL-ENERGY X-RAY ABSORPTIOMETRY (DXA)-01/19/2016: INDICATION: 60-year-old patient status post hysterectomy. The patient reports taking vitamin D. She gives a history of a prior right wrist fracture. COMPARISON: 08/21/2001. PROCEDURE: A DXA scan was performed using a Hologic densitometer. The lumbar spine was evaluated as well as the left total hip. The T-score compares the patient's bone mineral density with the peak bone mass of young normal patients. According to criteria established by the World Health Organization, patients with T-scores between 1.0 and 2.5 standard deviations BELOW the mean are osteopenic (low bone mass). Patients with T-scores EQUAL TO OR GREATER than 2.5 standard deviations below the mean are osteoporotic. The Z-score compares the patient bone mineral density with age and sex matched peers. According to the International Society for Clinical Densitometry's 2007 consensus conference: In women prior to menopause and men less than age 50, Z-scores, not T-scores are preferred. A Z-score of -2.0 or lower is defined as below the expected range for age and a Z-score above -2.0 is within the expected range for age. The WHO diagnostic criteria may be applied in women in the menopausal transition. Osteoporosis cannot be diagnosed in men under age 50 on the basis of BMD alone. TECHNICAL QUALITY: The study is of good technical quality. RESULTS: Lumbar Spine: The BMD measured in the L1-L4 region is 1.166 g/cm2. The average T-score is 1.1. The Z-score is 2.6. Total Hip: The BMD measured at the left total proximal femur is 0.959 g/cm2. The T-score is 0.1. The Z-score is 1.2. Femoral Neck: The BMD measured at the left femoral neck is 0.785 g/cm2. The T-score is -0.6. The Z-score is 0.8. Procedure Note Etelvina Mac MD - 01/20/2016 DUAL-ENERGY X-RAY ABSORPTIOMETRY (DXA)-01/19/2016: INDICATION: 60-year-old patient status post hysterectomy. The patient reports taking vitamin D. She gives a history of a prior right wrist fracture. COMPARISON: 08/21/2001. PROCEDURE: A DXA scan was performed using a Hologic densitometer. The lumbar spine was evaluated as well as the left total hip. The T-score compares the patient's bone mineral density with the peak bone mass of young normal patients. According to criteria established by the World Health Organization, patients with T-scores between 1.0 and 2.5 standard deviations BELOW the mean are osteopenic (low bone mass). Patients with T-scores EQUAL TO OR GREATER than 2.5 standard deviations below the mean are osteoporotic. The Z-score compares the patient bone mineral density with age and sex matched peers. According to the International Society for Clinical Densitometry's 2007 consensus conference: In women prior to menopause and men less than age 50, Z-scores, not T-scores are preferred. A Z-score of -2.0 or lower is defined as below the expected range for age and a Z-score above -2.0 is within the expected range for age. The WHO diagnostic criteria may be applied in women in the menopausal transition. Osteoporosis cannot be diagnosed in men under age 50 on the basis of BMD alone. TECHNICAL QUALITY: The study is of good technical quality. RESULTS: Lumbar Spine: The BMD measured in the L1-L4 region is 1.166 g/cm2. The average T-score is 1.1. The Z-score is 2.6. Total Hip: The BMD measured at the left total proximal femur is 0.959 g/cm2. The T-score is 0.1. The Z-score is 1.2. Femoral Neck: The BMD measured at the left femoral neck is 0.785 g/cm2. The T-score is -0.6. The Z-score is 0.8. IMPRESSION: The patient has normal bone mass. This is according to criteria established by the World Health Organization. All the treatment decisions require clinical judgment and consideration of individual patient factors, including patient preferences, co-morbidities, previous drug use, risk factors not captured in the FRAX model (frailty, falls, vitamin D deficiency, increased bone turnover, interval significant decline in bone density) and possible under or over estimation of fracture risk by FRAX. Approaches to reduce osteoporosis related fracture risk include optimizing calcium and vitamin D status, appropriate weight bearing exercises and fall-prevention measurements. The National Osteoporosis Foundation recommends (http://www.nof.org/hcp/practice/kozvilpe-wxj-wzirhonx-guidelines/clinic ans-guide) that FDA-approved medical therapies be considered in postmenopausal women and men aged equal or greater than 50 years with : a) hip or vertebral (clinical or morphometric) fracture; b) T-score of -2.5 or less at the spine or hip; c) Ten-year fracture probability by FRAX of greater than 3% for hip fracture of greater than 20% for major osteoporotic fracture. Secondary causes of bone loss should be evaluated if clinically indicated since the etiology of low BMD cannot be determined by BMD measurement alone. FOLLOWUP: Consider repeating the study in 2-3 years to reassess the patient's status or sooner if there is some new clinical indication. INTERVAL CHANGE: Compared to the prior exam done on 08/21/2001 there has been a statistically significant -2.9% change for measurements involving the lumbar spine. There has been no statistically significant change for measurements involving the left total hip. At this facility, the least significant change in the BMD at the left\right hip with 95% confidence is 0.415148 gm/cm2 and and 0.286665 g/cm2 at the lumbar spine. This report was finalized on 01/20/2016 3:[address] Etelvina Mac MD. Sue Ibrahim CAN SLIDER IMG DXA ORDERABLES Final Res ult from Last 3 Months or Most Recently Relevant to Health Maintenance Insurance [employer] MEDICARE A ONLY Care Teams Shellfish Farming Supervisor Relationship Specialty Start Date End Date Osvaldo Omalley MD [address] [facility] [address] [place] [address] PCP - General Adolescent Medicine 03/18/22
--- NOTE | 2025-04-16 11:35 | XR_ITS ---
FINAL REPORT CLINICAL HISTORY: dyspnea COMPARISON: None FINDINGS: PA and lateral views of the chest are obtained. There is no prior exam for comparison. The heart is normal in size. There is a retrocardiac opacity containing air consistent with a hiatal hernia. The lungs are clear. There is no pleural effusion, pneumothorax, or acute osseous abnormality. IMPRESSION: No radiographic evidence of acute cardiac or pulmonary disease. Retrocardiac opacity containing air consistent with a hiatal hernia. Reviewed, Interpreted and Dictated by Lakshmi Buckley MD Transcribed by Nancy Meade Authenticated and [facility]
== END 2025-04-16 23:59 | disposition home or self-care (01) ==
LOC: RAD 11:30
PROVIDERS: PCP Family Medicine; Visit Provider Physician Assistant
DX: G30.0 Alzheimer's disease with early onset (principal); F02.C11 Dementia in other diseases classified elsewhere, severe, with agitation; R07.89 Other chest pain; R91.8 Other nonspecific abnormal finding of lung field; R06.09 Other forms of dyspnea; Z82.49 Family history of ischemic heart disease and other diseases of the circulatory system
CPT/HCPCS: 71046

== ENCOUNTER 2025-04-29 07:04 | Outpatient (CLI) | payer BC, SELFPAY ==
--- OUTSIDE RECORDS SUMMARY | 2025-02-18 05:45 | XMS_ITS ---
Author Organization [facility] Address [address] [place] [id number] Care Team Providers Care Auxiliary Engineer Name Role Phone Tay Nelson Primary Care Provider Allergies No Known Allergies Results Component Value Reference Range Notes Glucose (In-House) Reviewed date:02/18/2025 10:13:32 PM Interpretation:141 Performing Lab: Notes/Report: 141 blood glucose 141 74 - 106 mg/dL Glycohemoglobin A1c (in hous e) Reviewed date:02/19/2025 09:56:20 AM Interpretation:6.4% Performing Lab: Notes/Report: 6.4% glycohemoglobin 6.4% 5 - 6.5 % P-Vitamin B12 Reviewed date:02/19/2025 09:56:20 AM Interpretation:343 Performing Lab: Notes/Report: Test performed by [facility] [address] [place] [address] Gabriela Kaminski, [address], [place] [address] Kiko Mayorga MD, Optimization Specialist CLIA: [id number] Vitamin B12 212 214-6089 pg/mL P-Basic Metabolic Panel (BMP ) Reviewed date:02/19/2025 09:56:20 AM Interpretation:gluc 114 Performing Lab: Notes/Report: Test performed by [facility] [address] [place], [place] [address] Gabriela Kaminski, [address], [place] [address] Kiko Mayorga MD, Optimization Specialist CLIA: [id number] Sodium 140 135-145 mmol/L Potassium 4.2 3.5-5.3 mmol/L Chloride 107 97-108 mmol/L CO2 24 20-32 mmol/L Glucose 114 65-99 mg/dL BUN 14 8-23 mg/dL Creatinine 0.72 0.50-1.00 mg/dL Calcium 9.0 8.6-10.4 mg/dL eGFR by Creatinine 89 >59 mL/min/1.73m2 P-TSH reflex to FT4 Reviewed date:02/19/2025 09:56:20 AM Interpretation:Normal Performing Lab: Notes/Report: Test performed by [facility] [address] [place] [address] , [place] [address] Kiko Mayorga MD, Optimization Specialist CLIA: [id number] TSH reflex to FT4 3.69 0.43-5.25 mU/L P-Vitamin D 25-Hydroxy Reviewed date:02/19/2025 09:56:20 AM Interpretation:13.1 Performing Lab: Notes/Report: Test performed by [facility] [address] [place] [address] , [place] [address] Kiko Mayorga MD, Optimization Specialist CLIA: [id number] Vitamin D 25-Hydroxy 13.1 30.0-100.0 ng/mL Interpretation of Vitamin D 25 OH: < 20 ng/mL - Deficiency 20 - 29 ng/mL - Insufficiency 30 - 100 ng/mL - Sufficiency > 100 ng/mL - Super-therapeutic- toxicity may occur above this level. Clinical correlation required. REASON FOR VISIT establishment Medications Medication SIG (Take, Route, Frequency, Duration) Notes Start Date End Date Status Cetirizine HCl 10 MG 1 tablet Orally Onc e a day Active Carbidopa-Levodopa 25-250 MG 1 tablet Orally Three times a day Active Escitalopram Oxalate 20 MG 1 tablet Oral ly Once a day Active Memantine HCl 10 MG 1 tablet Orally Once a day Active Donepezil HCl 10 MG 1 tablet at bedtime Orally Once a day Active QUEtiapine Fumarate 25 MG 1 tablet at be dtime Orally Once a day Active Problems Problem Type SNOMED Code ICD Code Onset Dates Problem Status W/U Status Risk Notes Problem Dementia (39861697) Dementia, unspecified dementia severity, unspecified dementia type, unspecified whether behavioral, psychotic, or mood disturbance or anxiety (F03.90) Active confirmed Problem Vitamin D deficiency (88125215) Vitamin D deficiency (E55.9) Active confirmed Vital Signs Weight 182.6 lbs 02/18/2025 Blood pressure systolic 114 mm Hg 02/19/20 25 Blood pressure diastolic 68 mm Hg 025 Heart Rate 91 /min 02/18/2025 Height 66 in 02/18/2025 BMI 29.47 kg/m2 02/18/2025 Encounters Encounter Location Date Provider Diagnosis [facility] [address] [place], [place] [id number] 02/18/2025 Tay Nelson Dementia, unspecifie d dementia severity, unspecified dementia type, unspecified whether behavioral, psychotic, or mood disturbance or anxiety F03.90 ; Hyperglycemia R73.9 ; Vitamin B 12 deficiency E53.8 and Vitamin D deficiency E55.9 Assessments Encounter Date Diagnosis (ICD Code) Assessment Notes Treatment Notes Treatment Clinical Notes Section Notes 02/18/2025 Dementia, unspecified dementia severity, unspecified dementia type, unspecified whether behavioral, psychotic, or mood disturbance or anxiety (ICD-10 - F03.90) 02/18/2025 Hyperglycemia (ICD-10 - R73.9) 02/18/2025 Vitamin B 12 deficiency (ICD-10 - E53.8) 02/18/2025 Vitamin D deficiency (ICD-10 - E55.9) Plan Of Treatment Next Appt Details Follow Up: via phone to repo rt test results, Reason: Progress Notes * Kelly SAMUELSDOB: 4 (70 yo F)Acc No.[id number]:02/18/2025 Progress Notes Patient: Kelly DICKEY Provider: Casie Nelson M.D. :1955 A ge:69 Y S ex:Female Date:02/18/2025 Address:[address] [place] [address], [id number] Subjective: * Chief Complaints: * 1 . Establishment. * HPI: H PI: 69 year old female presents with c/o Patient is here today for?Pt here to establish care, pt was previously seen by Dr. Omalley. She has dementia and is followed at the [facility]. She was previously told that her blood sugar was elevated, but does not know the exact number. She is accompanied by her and son. * Medical History: D epression, Alzheimers, Allergic rhinitis, Hyperlipidemia, Vitamin D Deficiency, Vitamin B12 Deficiency, Restless Leg, Mammogram, 03/27/2024, Negative. * Surgical History: T onsilectomy 1989, Complete Hysterectomy 1982, [place] Teeth Extracted , Colonoscopy, Repeat 5-6 Yrs 11/07/2013. * Hospitalization/Major Diagno stic Procedure: D enies Past Hospitalization. * Family History: F ather: . M other: . M aternal Grand Mother: diagnosed with Heart Disease. 2 brother(s) , 1 sister(s) . 1 son(s) , 1 daughter(s) . . Maternal side- Alzheimers, Parkinsons. * Social History: C URRENT TOBACCO USE: No . C affeine: no. Marital Status: . Alcohol: no. * Medications: T aking Carbidopa-Levodopa 25-250 MG Tablet 1 tablet Orally Three times a day , Taking Cetirizine HCl 10 MG Tablet 1 tablet Orally Once a day , Taking Donepezil HCl 10 MG Tablet 1 tablet at bedtime Orally Once a day , Taking Memantine HCl 10 MG Tablet 1 tablet Orally Once a day , Taking Escitalopram Oxalate 20 MG Tablet 1 tablet Orally Once a day , Taking QUEtiapine Fumarate 25 MG Tablet 1 tablet at bedtime Orally Once a day , Medication List reviewed and reconciled with the patient * Allergies: N .K.D.A. Objective: * Vitals: W t: 182.6, Temp: 98.0, BP: 114/68, HR: 91, Nurse: jan, Ht: 66, BMI:29.47. * Examination: G eneral Examination: General Appearance: N AD. H EENT: u nremarkable.?Oral cavity: n o lesions, mucosa moist and WNL, no erythema. H eart: R SR. L ungs: c lear to auscultation. N eurologic Exam: a nswers some simple questions, gait normal. Skin: n ormal, no rash. P eripheral pulses: n ormal (2+) bilaterally. E xtremities: n o leg edema. Assessment: * Assessment: 1. D ementia, unspecified dementia severity, unspecified dementia type, unspecified whether behavioral, psychotic, or mood disturbance or anxiety - F03.90 (Primary) 2 . H yperglycemia - R73.9 3 . V itamin B 12 deficiency - E53.8 4 . V itamin D deficiency - E55.9 Plan: * Treatment: Value Reference Range B UN 14 8-23 - mg/dL * C alcium 9.0 8.6-10.4 - mg/dL * C hloride 107 97-108 - mmol/L * C O2 24 20-32 - mmol/L * C reatinine 0.72 0.50-1.00 - mg/dL * G lucose 114 H 65-99 - mg/dL * P otassium 4.2 3.5-5.3 - mmol/L * S odium 140 135-145 - mmol/L * e GFR by Creatinine 89 >59 - mL/min/1.73m2 * Silvia Rothman 02/19/2025 09:5 6:12 AM EDT > See phone encounter ?LAB: P-TSH reflex to FT4 (Collection Date & Time - 02/18/2025 10:31 AM)? Normal* Value Reference Range T SH reflex to FT4 3.69 0.43-5.25 - mU/L * Silvia Rothman 02/19/2025 09:5 6:12 AM EDT > See phone encounter ?LAB: Glucose (In-House) (Collection Date & Time - 02/18/2025)?141* Value Reference Range b lood glucose 141 74 - 106 mg/dL * Fior Rogers 02/18/2025 12:12: 54 PM EDT >Tay Nelson 02/18/2025 10:13:28 PM EDT > ?LAB: Glycohemoglobin A1c (in house) (Collection Date & Time - 02/18/2025)? 6.4%* Value Reference Range g lycohemoglobin 6.4% 5 - 6.5 % * Fior Rogers 02/18/2025 12:13: 12 PM EDT >Tay Nelson 02/18/2025 10:13:43 PM EDT > Silvia Rothman 02/19/2025 09:56:12 AM EDT > See phone encounter 2.?Vitamin B 12 deficiency?LAB: P-Vitamin B12 (Collection Date & Time - 02/18/2025 10:31 AM)?343* Value Reference Range V itamin B12 308 566-8593 - pg/mL * Silvia Rothman 02/19/2025 09:5 6:12 AM EDT > See phone encounter 3.?Vitamin D deficiency?LAB: P-Vitamin D 25-Hydroxy (Collection Date & Time - 02/18/2025 10:31 AM)? 13.1* Value Reference Range V itamin D 25-Hydroxy 13.1 L 30.0-100.0 - ng/mL * Silvia Rothman 02/19/2025 09:5 6:12 AM EDT > See phone encounter * Procedure Codes: G 2211 Complex e/[place], [address] GLYCATED HEMOGLOBIN TEST, Modifiers: QW , 43511 GLUCOSE TEST, 3044F HG A1C LEVEL LT 7.0%, 1036F TOBACCO NON-USER, 3074F SYST BP LT 130 MM HG, 3078F DIAST BP < 80 MM HG * Follow Up: v ia phone to report test results * Images: Billing Information: * Visit Code: 39309 Office Visit, New Pt., Level 4. * Procedure Codes: G2211 Complex e/[place]. [address] GLYCATED HEMOGLOBIN TEST. Modifiers: QW 41494 GLUCOSE TEST. 3044F HG A1C LEVEL LT 7.0%. 1036F TOBACCO NON-USER. 3074F SYST BP LT 130 MM HG. 3078F DIAST BP < 80 MM HG. * Electronic signature of Lolly Nelson MD on 04/29/2025 at 07:07 AM EST Sign off status: Pending * Provider: Casie Nelson M.D. Date: 1 Generated for Mahendra corona/Braxton/[place] on: 06/30/2024 07:07 AM EST History and Physical Notes * HPI (History of Present Illness) Category Sub-Category Detail Notes Category Not es HPI Patient is here today for Pt her e to establish care, pt was previously seen by Dr. Omalley. She has dementia and is followed at the [facility]. She was previously told that her blood sugar was elevated, but does not know the exact number. She is accompanied by her and son Examination Category Sub-Category Detail Notes Category Not es General Examination HEENT: unremarkable Heart: RSR Lungs: clear to auscultatio n Extremities: no leg edema General Appearance: NAD Skin: normal, no rash Neurologic Exam: answers some simple questions, gait normal Oral cavity: no lesions, mucosa m oist and WNL, no erythema Peripheral pulses: normal (2+) bilatera lly
--- OUTSIDE RECORDS SUMMARY | 2025-04-16 04:45 | XMS_ITS ---
[facility] Address [address] [place] [id number] Care Team Providers Care Chassis Wirer Name Role Phone Omar Tay Primary Care Provider Jacquelin Andrade Unavailable [phone] Allergies No Known Allergies Reason For Referral Diagnosis 1 Shortness of breath (R06.02) Referral Organization [facility] Referring Provider First Name Jacquelin Referring Provider Last Name Raymond Referring Provider Speciality Physician Rn Cardiac Rehab Referred Provider Specialty Cardiovascul ar Disease General Notes Jacquelin Andrade 07/2024 02:50:34 PM >[facility]16[facility] 02:51:49 PM > [facility] Cardiology[facility]aquelin Brynn 04/18/2025 10:28:25 AM > 05/21/2025 at 10:00am Referral Priority Routine REASON FOR VISIT gagging and vomiting; go over bloodwork Medications Medication SIG (Take, Route, Frequency, Duration) Notes Start Date End Date Status Escitalopram Oxalate 20 MG 1 tablet Oral ly Once a day; Duration: 90 days Active Vitamin D 1.25 MG (71673 UT) 1 capsule Orally eekly 02/19/2025 Activ e metFORMIN HCl ER 500 MG 1 tablet with ev ening meal Orally Once a day; Duration: 90 days 02/19/2025 Active QUEtiapine Fumarate 25 MG 1 tablet at be dtime Orally Once a day Active Carbidopa-Levodopa 25-250 MG 1 tablet Orally Three times a day; Duration: 90 days Active Memantine HCl 10 MG 1 tablet Orally Once a day Active Donepezil HCl 10 MG 1 tablet at bedtime Orally Once a day Active Cetirizine HCl 10 MG 1 tablet Orally Onc e a day Active Omeprazole 40 MG 1 cap Orally Once a day; Duration: 30 days 04/16/2025 Active Vitamin B12 1000 MCG 1 tablet Orally Onc e a day; Duration: 30 days 04/16/2025 Active Vital Signs Weight 186.4 lbs 04/16/2025 Blood pressure systolic 124 mm Hg 04/16/20 25 Blood pressure diastolic 60 mm Hg 025 Heart Rate 81 /min 04/16/2025 Height 66 in 04/16/2025 BMI 30.08 kg/m2 04/16/2025 Encounters Encounter Location Date Provider Diagnosis [facility] [address] [facility] [address] [place], [place] [id number] 04/16/2025 Jacquelin Andrade Vitamin B12 deficien cy E53.8 ; Choking sensation R09.89 and Shortness of breath R06.02 Assessments Encounter Date Diagnosis (ICD Code) Assessment Notes Treatment Notes Treatment Clinical Notes Section Notes 04/16/2025 Vitamin B12 deficiency (ICD-10 - E53.8) Will start B12 and recheck in 2 months. 04/16/2025 Choking sensation (ICD-10 - R09.89) Will start on omeprazole. If no improvement, will make GI referral. 04/16/2025 Shortness of breath (ICD-10 - R06.02) Plan Of Treatment Medication Medication Name Sig Start Date Stop Date Notes Omeprazole 40 MG 1 cap Orally Once a day; Duration: 30 days 04/16/2025 Vitamin B12 1000 MCG 1 tablet Orally Onc e a day; Duration: 30 days 04/16/2025 Treatment Notes Assessment Notes Vitamin B12 deficiency Will start B12 an d recheck in 2 months. Choking sensation Will start on omepra zole. If no improvement, will make GI referral. Referrals Referral Date Details 04/16/2025 04/16/2025 Next Appt Details Follow Up: 2 Months, Reason: Progress Notes * Kelly DEL CID BambiDOB: 4 (70 yo F)Acc No.[id number]:04/16/2025 Progress Notes Patient: Kelly DICKEY Provider: CRISS Altman :1955 A ge:69 Y S ex:Female Date:04/16/2025 Address:[place], [id number] Pcp:Tay Nelson Subjective: * Chief Complaints: * 1 . Gagging and vomiting; go over bloodwork. * HPI: H PI: Patient is here today for w ants to go over blood work from last visit. Pt states she is having few days she is gagging. She is unsure if it is reflux but it happens with and without food and her says he thinks it feels like there is something in her throat. She is also having SOA with exertion.. * ROS: D ERMATOLOGY: no R irma. n o H marino. G ASTROENTEROLOGY: no N ausea. n o V omiting. n o D iarrhea.? U ROLOGY: no D ifficulty urinating. n o B lood in urine. * Medical History: D epression, Alzheimers, Allergic rhinitis, Hyperlipidemia, Vitamin D Deficiency, Vitamin B12 Deficiency, Restless Leg, Mammogram, 03/27/2024, Negative. * Surgical History: T onsilectomy 1989, Complete Hysterectomy 1982, [place] Teeth Extracted , Colonoscopy, Repeat 5-6 Yrs 11/07/2013. * Family History: F ather: . M other: . M aternal Grand Mother: diagnosed with Heart Disease. 2 brother(s) , 1 sister(s) . 1 son(s) , 1 daughter(s) . . Maternal side- Alzheimers, Parkinsons. * Social History: C URRENT TOBACCO USE: No . C affeine: no. Marital Status: . Alcohol: no. * Medications: T aking Cetirizine HCl 10 MG Tablet 1 tablet Orally Once a day , Taking Donepezil HCl 10 MG Tablet 1 tablet at bedtime Orally Once a day , Taking Memantine HCl 10 MG Tablet 1 tablet Orally Once a day , Taking QUEtiapine Fumarate 25 MG Tablet 1 tablet at bedtime Orally Once a day , Taking metFORMIN HCl ER 500 MG Tablet Extended Release 24 Hour 1 tablet with evening meal Orally Once a day , Taking Vitamin D 1.25 MG (17891 UT) Capsule 1 capsule Orally eekly , Taking Escitalopram Oxalate 20 MG Tablet 1 tablet Orally Once a day , Taking Carbidopa-Levodopa 25-250 MG Tablet 1 tablet Orally Three times a day , Medication List reviewed and reconciled with the patient * Allergies: N .K.D.A. Objective: * Vitals: W t: 186.4, Temp: 97.6, BP: 124/60, HR: 81, Nurse: pe, Ht: 66, BMI:30.08. * Examination: G eneral Examination: General Appearance: N AD. H EENT: u nremarkable.?Oral cavity: n o lesions, mucosa moist and WNL, no erythema. N vishal: s upple, no lymphadenopathy. C hest: n ormal shape and expansion. H eart: R SR. L ungs: c lear to auscultation. A bdomen: b owel sounds present, soft and nontender, no organomegaly or masses, no guarding or rigidity. N eurologic Exam: I ntact, gait normal. S kin: n ormal, no rash. P eripheral pulses: n ormal (2+) bilaterally. E xtremities: n o leg edema. Assessment: * Assessment: 1. V itamin B12 deficiency - E53.8 (Primary) 2 . C hoking sensation - R09.89 3 . S hortness of breath - R06.02 Plan: * Treatment: 2. C hoking sensation Start Omeprazole Capsule Delayed Release, 40 MG, 1 cap, Orally, Once a day, 30 days, 30 Capsule, Refills 1. Notes: Will start on omeprazole. If no improvement, will make GI referral. 3. S hortness of breath Referral To:Cardiovascular Disease Reason: * Procedure Codes: 3 074F SYST BP LT 130 MM HG, 3078F DIAST BP < 80 MM HG * Follow Up: 2 Months * Images: Billing Information: * Visit Code: 44972 Office Visit, Est Pt., Level 4. * Procedure Codes: 3074F SYST BP LT 130 MM HG. 3078F DIAST BP < 80 MM HG. * Electronic signature of CRISS Ahmadi on 04/29/2025 at 07:09 AM EST Sign off status: Pending * Provider: CRISS Altman Date: 06/17/2024 Generated for Mahendra corona/Braxton/[place] on: 1 06/30/2024 07:09 AM EST History and Physical Notes * HPI (History of Present Illness) Category Sub-Category Detail Notes Category Not es HPI Patient is here today for wants to go over blood work from last visit. Pt states she is having few days she is gagging. She is unsure if it is reflux but it happens with and without food and her says he thinks it feels like there is something in her throat. She is also having SOA with exertion. Examination Category Sub-Category Detail Notes Category Not es General Examination HEENT: unremarkable Heart: RSR Lungs: clear to auscultatio n Abdomen: bowel sounds present , soft and nontender, no organomegaly or masses, no guarding or rigidity Extremities: no leg edema General Appearance: NAD Skin: normal, no rash Neurologic Exam: Intact, gait normal Neck: supple, no lymphaden opathy Oral cavity: no lesions, mucosa m oist and WNL, no erythema Peripheral pulses: normal (2+) bilatera lly Chest: normal shape and exp ansion Consultation Request Notes Referral Date Referring Provider Referred Provider Not es 04/16/2025 Jacquelin Andrade ,
--- NOTE | 2025-04-29 | CA_ITS ---
APPROVED REPORT Exam: Pharmacologic Technologist: Chantelle Nicole Ht: 5 ft 6 in Wt: 183 lbs BSA: 1.93 m2 HR: 74 bpm BP: 122/76 mmHg Medical History Medications: Carbidopa-Levodopa, Donepezil, Vitamin D2, Escitalopram Oxalate, Memantine, Metformin ER, Omeprazole, Quetiapine. Allergies: NKA Stress Test Details Test: Lexiscan Reason for pharmacologic stress test: physical limitation. HR Resting HR: 74 bpm Max Heart Rate (APMHR): 149.045363 bpm Max HR Achieved: 90 bpm Target HR (85% APMHR): 126.671700 bpm % of APMHR: 60.40 Recovery HR: 83 bpm BP Resting BP: 122.0/76.0 mmHg Max BP: 127.0/73.0 mmHg Recovery BP: 127.0/73.0 mmHg ECG Stress ECG Conclusion EKG nondiagnostic Jeanne. Electronically signed by : Marcella Maciel MD 05/02/2025 13:35:32
--- OUTSIDE RECORDS SUMMARY | 2025-04-29 07:07 | XMS_ITS | Encounter Summary ---
Author Organization Healthcare Address [address] [place] [address] Care Team Providers Care Ventilation Worker Name Role Phone Osvaldo Omalley MD Primary Care Provider [phone] Reason for Visit * Reason Onset Date Comments Med Refill 04/07/2025 Encounter Details Date Type Department Care Team (Late st Contact Info) Description [facility]/07[facility] [place] [facility] [address] [place] [address] Vaishnavi De Paz, PA [address] [place] [address] Alzheimer's dementia of other onset, [...] Description 07/01/2025 11:00 AM EST Office Visit [facility] [place] [facility] [address] [place] [address] Vaishnavi De Paz, PA [address] [place] [address] documented as of this encounter [...] documented as of this encounter Care Teams Ventilation Worker Relationship Specialty Start Date End Date Osvaldo Omalley MD [address] [place] [address] PCP - General Internal Medicine 09/29/21 documented as of this encounter
--- OUTSIDE RECORDS SUMMARY | 2025-04-29 07:07 | XMS_ITS | Clinical Summary ---
Author Organization [facility] Address [address] [place] [address] Care Team Providers Care Back Hoe Operator Name Role Phone Osvaldo Omalley MD Primary Care Provider [phone] Allergies No known active allergies Medications donepezil [...] or training? Not on file Preferred Language Indian 04/06/2022 Comments No Sex and Gender Information [...] Info) Description 06/16/2025 11:00 AM EST Appointment [address] [address] Health Maintenance Due Date Last Done Comments [...] Discontinued 04/06/2022 Medical Devices Implanted Type Area Chair Trimmer Device Identifier Shelf Expiration Date Model / Serial / Lot Stem Rad Align Ti [id number] - [id number] Implanted:Qty: 1 on 04/11/2022 by Krunal George MD at [facility] Implant Right: Elbow [employer]LET[employer] [id number] / / [id number] Sut/Anch Gryphon/P Br W/Dynacord - [id number] Implanted:Qty: 1 on 04/11/2022 by Krunal George MD at [facility] Implant Right: Elbow DEPUY MITEK 06/14/2024 [id number] / / [id number] Hd Rad Lockscrw Align 18mm - [id number] Implanted:Qty: 1 on 04/11/2022 by Krunal George MD at [facility] Implant Right: Elbow SKELET[employer] [id number] / / [id number] Sut/Anch Gryphon/P Br W/Dynacord - [id number] Implanted:Qty: 1 on 04/11/2022 by Krunal George MD at [facility] Implant Right: Elbow DEPUY MITEK 06/14/2024 [id number] / / [id number] Procedures Procedure Name Priority Date/Time Associated Diagnosis [...] of concern indicated by the patient. A lone pine marker is placed over a visible skin [...] - 5.60 % 04/06/2022 3:20 PM EST [facility] Blood Venipuncture / Unknown 04/06/2022 2:27 PM EST 04/06/2022 3:02 PM EST Narrative [facility] - 04/06/2022 3:20 PM EST Hemoglobin A1C Ranges: Increased Risk for Diabetes 5.7% to 6.4% Diabetes >= 6.5% Diabetic Goal < 7.0% us Krunal George MD LAB BLOOD ORDERABLES Jessica l Result [facility]
[address] [place] [address], * dexa bone density axial (01/19/2016 9:30 [...] fall-prevention measurements. The National Osteoporosis Foundation recommends (http://www.nof.org/hcp/practice/tqcfcqdq-jft-mvppiicx-guidelines/clinic ans-guide) that FDA-approved medical therapies be considered [...] the left\right hip with 95% confidence is 0.866731 gm/cm2 and and 0.085185 g/cm2 at the lumbar spine. This report [...] fall-prevention measurements. The National Osteoporosis Foundation recommends (http://www.nof.org/hcp/practice/arovpttr-pum-dmcgfsuw-guidelines/clinic ans-guide) that FDA-approved medical therapies be considered [...] the left\right hip with 95% confidence is 0.143314 gm/cm2 and and 0.887180 g/cm2 at the lumbar spine. This report was finalized on 01/20/2016 3:[address] Etelvina Mac MD. Sue Ibrahim JOB ESTIMATOR IMG DXA ORDERABLES Final Res ult from Last 3 Months or Most Recently Relevant to Health Maintenance Insurance [employer] MEDICARE A ONLY Care Teams Back Hoe Operator Relationship Specialty Start Date End Date Osvadlo Omalley MD [address] [facility] [address] [place] [address] PCP - General Adolescent Medicine 03/18/22
--- OUTSIDE RECORDS SUMMARY | 2025-04-29 07:07 | XMS_ITS | Clinical Summary ---
Author Organization Healthcare Address [address] [place] [address] Care Team Providers Care Tug Boat Captain Name Role Phone Osvaldo Omalley MD Primary Care Provider [phone] Allergies No known active allergies Medications escitalopram [...] Department Care Team Description 04/07/2025 Refill [facility] [place] [facility] [address] [place] [address] Vaishnavi De Paz PA Alzheimer's dementia of other onset, with agitation, unspecified dementia severity (CMS/HCC) from Last 3 Months Immunizations Immunization Administration Dates Next Due Influenza, injectable, quadrivalent 03/02/2018,1 Influenza, injectable, quadrivalent, preservativ e free 03/02/2020,03/13/2019 Moderna COVID-19 Vaccine (Domestic Violence Counselor) 12+ years ,06/03/2020 Pneumococcal Polysaccharide PPV23 06/04/2020 [...] Description 07/01/2025 11:00 AM EST [facility] [place] [facility] [address] [place] [address] Vaishnavi De Paz, PA [address] [place] [address] Health Maintenance Due Date Last Done Comments [facility]-Hepatitis C Screening 1954 [facility]-Infant/Child/Adol SDOH Screenings 1954 [facility]- SDOH Screenings 1972 [facility]-Adult SDOH Screenings 1972 CT Colonography 1999 Colonoscopy 1999 FIT-DNA 1999 FIT 1999 FOBT 1999 Sigmoidoscopy 1999 [facility]-Colorectal Cancer Screening 1999 [facility]-Zoster Vaccines (1 of 2) 2004 [facility]-Bone Density Scan 01/18/2018 01/19/2016 [facility]-Pneumococcal Vaccine: 50+ Years (2 of 2 - PCV) 06/04/2021 06/04/2020 [facility]-Depression Screening 05/30/2024 05/30/2023 CIG-[id number]-65 Vaccine ( season) 2025 03/20/2024, 03/03/2023, 02/23/2022, Additional history exists [facility]-Influenza Vaccine (#1) 01/13/202503/04, 03/01/2023, 02/21/2022, Additional history exists [facility]-Breast Cancer Screening 03/27/202603/15, 03/27/2024, 03/21/2023, Additional history exists [facility]-RSV Vaccine: 60+ Years or (1 - 1-dose 75+ series) 2029 [facility]-DTaP,Tdap,and Td Vaccines (2 - Td or Tdap) 08/26/2032 08/26/2022 [facility]-Obesity Intervention Completed 025, 10/01/2024, 07/26/2024, Additional history exists HPV Vaccines (No Doses Required) Completed [facility]-HIB Vaccines Aged Out No longer e [...] patient's age to complete this topic [place] [address] [facility] Advance Directives Documents on File Type Date Recorded Patient Contract Negotiation Manager Expl anation Power of Marketing Support Specialist 01/06/2025 10:22 AM Heal th POA Power of Marketing Support Specialist 01/06/2025 10:21 AM Lega l POA Advance Directives and Livin g Will 01/06/2025 10:21 AM Power of Marketing Support Specialist 11/22/2024 9:53 AM Legal Care Teams Tug Boat Captain Relationship Specialty Start Date End Date Osvaldo Omalley MD [address] [place] [address] PCP - General Internal Medicine 09/29/21
--- OUTSIDE RECORDS SUMMARY | 2025-04-29 07:08 | XMS_ITS | Encounter Summary ---
Author Organization Healthcare Address [address] [place] [address] Care Team Providers Care Public Administration Professor Name Role Phone Osvaldo Omalley MD Primary Care Provider [phone] Reason for Visit * Reason Comments Med Refill Encounter Details Date Type Department Care Team (Late Contact Info) Description 01/06/2025 Refill [facility] - [facility] [address] [place] [address] Yadira Tucker MD [address] [place] [address] Alzheimer's dementia of other onset, [...] Description 07/01/2025 11:00 AM EST Office [facility] [place] [address] Vaishnavi De Paz, PA [address] [place] [address] documented as of this encounter [...] documented as of this encounter Care Teams Public Administration Professor Relationship Specialty Start Date End Date Osvaldo Omalley MD [address] [place] [address] PCP - General Internal Medicine 09/29/21 documented as of this encounter
--- OUTSIDE RECORDS SUMMARY | 2025-04-29 07:09 | XMS_ITS | Encounter Summary ---
Author Organization Healthcare Address [address] [place] [address] Care Team Providers Care Certified Ophthalmic Medical Technician Name Role Phone Osvaldo Omalley MD Primary Care Provider [phone] Reason for Visit * Reason Comments Med Refill Encounter Details Date Type Department Care Team (Late st Contact Info) Description 03/16/2023 [facility] [address] [place] [address] Sue Otero PA [address] [place] [address] Social History Tobacco Use Types [...] 07/01/2025 11:00 AM EST Office Visit [facility] [address] [place] [address] Vaishnavi De Paz, CRISS [address] [place] [address] documented as of this encounter Visit Diagnoses Not on filedocumented in this encounter Additional Health Concerns Assessment Noted Time A fall risk assessment has been complete d for the patient 03/31/2022 10:17 AM EST A Body Mass Index follow-up plan has been documented for the patient 08/18/2022 4:05 PM EDT documented as of this encounter Care Teams Certified Ophthalmic Medical Technician Relationship Specialty Start Date End Date Osvaldo Omalley MD [address] [place] [address] [address] [place] [address] PCP - General Internal Medicine 09/29/21 documented as of this encounter
--- OUTSIDE RECORDS SUMMARY | 2025-04-29 07:09 | XMS_ITS | Encounter Summary ---
Author Organization [facility] Address [address] [place] [address] Care Team Providers Care Sales Development Executive Name Role Phone Osvaldo Omalley MD Primary Care Provider [phone] Encounter Details Date Type Department Care Team (Late st Contact Info) Description 04/25/2012 Conversion Encounter [facility] HISTORICAL CONV [address] [place] [address] Interface, See Report Social History [...] exam: Constitutional: Weight 181 [place] 63 [place] [address] Pulse Temp Neurological/Psychiatric: HEENT: Neck: Respiratory: Cardiovascular: [...] Info) Description 06/16/2025 11:00 AM EST Appointment [address] [address] documented as of this encounter Visit Diagnoses Not on filedocumented in this encounter Care Teams Sales Development Executive Relationship Specialty Start Date End Date Osvaldo Omalley MD [address] [place] [address] [facility] [address] [facility] [place] [address] PCP - General Adolescent Medicine 03/18/22 documented as of this encounter
--- OUTSIDE RECORDS SUMMARY | 2025-04-29 07:10 | XMS_ITS | Patient Health Record ---
Author Organization [facility] Address [address] [place] [id number] Care Team Providers Care Senior Shipping Clerk Name Role Phone Tay Nelson Primary Care Provider Jacquelin Andrade Unavailable [phone] Allergies No Known Allergies Results Component Value Reference Range Notes Glucose (In-House) Reviewed date:02/18/2025 10:13:32 PM Interpretation:141 Performing Lab: Notes/Report: 141 blood glucose 141 74 - 106 mg/dL Glycohemoglobin A1c (in hous e) Reviewed date:02/19/2025 09:56:20 AM Interpretation:6.4% Performing Lab: Notes/Report: 6.4% glycohemoglobin 6.4% 5 - 6.5 % P-Vitamin B12 Reviewed date:02/19/2025 09:56:20 AM Interpretation:343 Performing Lab: Notes/Report: Test performed by [facility] [address] [place] [address] , [place] [address] Kiko Mayorga MD, Diplomatic Officer CLIA: [id number] Vitamin B12 754 518-2896 pg/mL P-Basic Metabolic Panel (BMP ) Reviewed date:02/19/2025 09:56:20 AM Interpretation:gluc 114 Performing Lab: Notes/Report: Test performed by [facility] [address] [place], [place] [address]Jack Robie Gabriela Kaminski, [place] [address] Kiko Mayorga MD, Diplomatic Officer CLIA: [id number] Sodium 140 135-145 mmol/L Potassium 4.2 3.5-5.3 mmol/L Chloride 107 97-108 mmol/L CO2 24 20-32 mmol/L Glucose 114 65-99 mg/dL BUN 14 8-23 mg/dL Creatinine 0.72 0.50-1.00 mg/dL Calcium 9.0 8.6-10.4 mg/dL eGFR by Creatinine 89 >59 mL/min/1.73m2 P-TSH reflex to FT4 Reviewed date:02/19/2025 09:56:20 AM Interpretation:Normal Performing Lab: Notes/Report: Test performed by [facility] [address] [place] [address] , [address], [place] [address] Kiko Mayorga MD, Diplomatic Officer CLIA: [id number] TSH reflex to FT4 3.69 0.43-5.25 mU/L P-Vitamin D 25-Hydroxy Reviewed date:02/19/2025 09:56:20 AM Interpretation:13.1 Performing Lab: Notes/Report: Test performed by [facility] [address] [place] [address] , [address], [place] [address] Kiko Mayorga MD, Diplomatic Officer CLIA: [id number] Vitamin D 25-Hydroxy 13.1 30.0-100.0 ng/mL Interpretation of Vitamin D 25 OH: < 20 ng/mL - Deficiency 20 - 29 ng/mL - Insufficiency 30 - 100 ng/mL - Sufficiency > 100 ng/mL - Super-therapeutic- toxicity may occur above this level. Clinical correlation required. Reason For Referral Diagnosis 1 Shortness of breath (R06.02) Referral Organization [facility] Referring Provider First Name Jacquelin Referring Provider Last Name Raymond Referring Provider Speciality Physician Alternative Energy Technician Referred Provider Specialty Cardiovascul ar Disease General Notes Jacquelin Andrade 07/2024 02:50:34 PM >[facility] 04/16/2025 02:51:49 PM > faxed to [facility] CardiologyYaquelin Brynn 04/18/2025 10:28:25 AM > 05/21/2025 at 10:00am Referral Priority Routine Medications Medication SIG (Take, Route, Frequency, Duration) Notes Start Date End Date Status Escitalopram Oxalate 20 MG 1 tablet Oral ly Once a day; Duration: 90 days Active Vitamin D 1.25 MG (19475 UT) 1 capsule Orally eekly 02/19/2025 Activ e metFORMIN HCl ER 500 MG 1 tablet with ev ening meal Orally Once a day; Duration: 90 days 02/19/2025 Active QUEtiapine Fumarate 25 MG 1 tablet at be dtime Orally Once a day Active Memantine HCl 10 [...] a day; Duration: 30 days 04/16/2025 Active Carbidopa-Levodopa 25-250 MG 1 tablet Orally Three times a day; Duration: 90 days Active Problems Problem Type SNOMED Code ICD Code Onset Dates Problem Status W/U Status Risk Notes Problem Vitamin D deficiency (72645458) Vitamin D deficiency (E55.9) Active confirmed Problem Dementia (98284528) Dementia, unspecified dementia severity, unspecified dementia type, unspecified whether behavioral, psychotic, or mood disturbance or anxiety (F03.90) Active confirmed Vital Signs Heart Rate 81 /min 04/16/2025 Blood pressure diastolic 60 mm Hg 04/16/2025 Height 66 in 04/16/2025 Blood pressure systolic 124 mm Hg 04/16/2025 Weight 186.4 lbs 04/16/2025 BMI 30.08 kg/m2 04/16/2025 Encounters Encounter Location Date Provider Diagnosis [facility] [address] [place] [id number] 02/18/2025 Tay Nelson Dementia, unspecifie d dementia severity, unspecified dementia type, unspecified whether behavioral, psychotic, or mood disturbance or anxiety F03.90 ; Hyperglycemia R73.9 ; Vitamin B 12 deficiency E53.8 and Vitamin D deficiency E55.9 [facility] [address] [place] [id number] 04/16/2025 Jacquelin Andrade Vitamin B12 deficien cy E53.8 ; Choking sensation R09.89 and Shortness of breath R06.02 [facility] [address] [place] [id number] 02/19/2025 Tay Nelson [facility] [address] [facility] [address] [place] [id number] 04/07/2025 Tay Nelson Assessments Encounter Date Diagnosis (ICD Code) Assessment Notes Treatment Notes Treatment Clinical Notes Section Notes 02/18/2025 Hyperglycemia (ICD-10 - R73.9) 02/18/2025 Dementia, unspecified dementia severity, unspecified dementia type, unspecified whether behavioral, psychotic, or mood disturbance or anxiety (ICD-10 - F03.90) 04/16/2025 Vitamin B12 deficiency (ICD-10 - E53.8) Will start B12 and recheck in 2 months. 04/16/2025 Choking sensation (ICD-10 - R09.89) Will start on omeprazole. If no improvement, will make GI referral. 02/18/2025 Vitamin B 12 deficiency (ICD-10 - E53.8) 04/16/2025 Shortness of breath (ICD-10 - R06.02) 02/18/2025 Vitamin D deficiency (ICD-10 - E55.9) Plan Of Treatment No Information Insurance Providers Payer Name Payer Address Payer Phone Subscriber Number Group Number Insured Name Patient Relationship to Insured Coverage Start Date Coverage End Date [employer] [address] [place] [address] [phone] [id number] Kelly Samuels Self - patient is the insured Medical (General) History Medical History History ICD Code depression Alzheimers allergic rhinitis Hyperlipidemia Vitamin D Deficiency Vitamin B12 Deficiency Restless Leg Mammogram, 03/27/2024, Negative Surgical History Surgery Date(Month/Year) Tonsilectomy 1989 Complete Hysterectomy 1982 Fulda Teeth Extracted Colonoscopy, Repeat 5-6 Yrs 11/07/2013
--- OUTSIDE RECORDS SUMMARY | 2025-04-29 07:11 | XMS_ITS | Encounter Summary ---
Author Organization [facility] Address [address] [place] [address] Care Team Providers Care Account Receivable Clerk Name Role Phone Osvaldo Omalley MD Primary Care Provider [phone] Encounter Details Date Type Department Care Team (Late st Contact Info) Description 10/07/2015 Conversion Encounter [facility] HISTORICAL CONV [address] [place] [address] Interface, See Report Social History [...] - 10/07/2015 12:00 AM EDT Gynecologic Oncology [facility] [place] [address] PHONE: [phone] FAX: [phone] Patient: LINDA DEL CID MR #: [id number] : 1955 Date of Visit: 10/07/2015 Referring [...] family and/or social history: Family history: FATHER- MD; PGM- BLOOD DISORDER . Social history: Tobacco [...] Info) Description 06/16/2025 11:00 AM EST Appointment [address] [address] documented as of this encounter Visit Diagnoses Not on filedocumented in this encounter Care Teams Account Receivable Clerk Relationship Specialty Start Date End Date Osvaldo Omalley MD [address] [facility] [address] [place] [address] PCP - General Adolescent Medicine 03/18/22 documented as of this encounter
--- OUTSIDE RECORDS SUMMARY | 2025-04-29 07:11 | XMS_ITS | Data Portability ---
Author Organization [facility] Address [address] [facility] [address] [place] [address] Care Team Providers Care Gas Dispenser Name Role Phone JOB CORRALES Air Brush Operator ALBERTO MUÑIZ Primary Care Provider Assessment No assessment recorded. Plan of Treatment Reminders Order Date Submit Date Provider Last Modified By Organization Details Last Modified Time Details Appointments None record ed. Lab None record ed. Referral None record ed. Procedures None record ed. Surgeries None record ed. Imaging None record ed. Medication Orders None record ed. Patient TargetsNo targets recorded. Patient InstructionsNo instructions recorded. Reason for Referral None Reported. Problems Name Problem SNOMED Code Status Onset Date Resolution Date Notes Provider Name and Address Organization Details Recorded Time Diabetes mellitus 50273779 Active 2018 Hernandez Piña [facility] 9 09:03:58 Cataract 662442692 Active 2018 Hernandez Piña [facility] 9 09:04:03 Hyperlipidemia 29066442 Active 2018 Hernandez Piña [facility] 9 09:04:08 Hypertensive disorder 00929946 Active 2018 Hernandez Piña [facility] 9 09:04:13 Problem Notes None recorded. Procedures Surgical History Date Name Laterality Status Provider Name and Address Organization Details Recorded Time Total hysterectomy completed Hernandez Piña [facility] 11/30/2018 09:05:57 Removal of tonsils completed Hernandez Piña [facility] 11/30/2018 09:06:07 Imaging Results None recorded. Procedure Notes None recorded. Medical Equipment None Reported. Allergies No known drug allergies Medications Name Sig Start Date Stop Date Status Note LastModified by Organization Details LastModified Time atorvastati n 40 mg tablet Take 1 tablet every day by oral route. 01/24 completed Not Available Not Available Not Available metformin 500 mg tablet Take 1 tablet every day by oral route. 01/24 completed Not Available Not Available Not Available donepezil 5 mg tablet Take 1 tablet every day by oral route. 01/24 completed Not Available Not Available Not Available simvastatin 20 mg tablet Daily 11/30 completed Frequen cy: daily;Segundo daugherty on Descrip tion: simvast atin; Dosage: 1; Route:o ral; refills :0 Not Available Not Available Not Available metformin 1,000 mg tablet Take 1 tablet every day by oral route. 01/15 completed Not Available Not Available Not Available hydrochloro thiazide 25 mg tablet Daily 11/30 completed Duratio n: 10 days;Fr equency : daily;Segundo kochicati on Descrip tion: hydroch lorothi azide; Dosage: 1; Route:o ral; refills :0; Quantit y:30 tablet Not Available Not Available Not Available Co Q-10 200 mg capsule Take by oral route. 01/21 completed Not Available Not Available Not Available melatonin 01/21 completed Not Available Not Available Not Available bisoprolol- hydrochloro thiazide 5-6.25M G 1/2 TABLET DAILY 01/24 completed Not Available Not Available Not Available Centrum Silver 01/21 completed Not Available Not Available Not Available Vitals None Recorded Social History Question Answer Notes LastModified by Organizat ion Details LastModified Time Tobacco Smoking Status Never Smoker Hernandez Piña [facility] 11/30/2018 09:05:42 What Was The Date Of Your Most Recent Tobacco Screening? 11/30/2018 Information n ot available 07/02/2019 Sex: Unknown Functional Status None recorded. Mental Status None recorded. Family History Relationship Description Onset Age of this Age Resolved Age Notes LastModified by Organization Details LastModified Time Maternal Grandmother Diabetes mellitus [email or web address] Not available 2018 09:05:16 Brother Hypertensive disorder [email or web address] Not available 2018 09:05:34 Medical History Condition Response Diabetes N Cataract Y Glasses/Contacts Y Gynecological HistoryNo gynecological history recorded. Obstetrics History GPAL:G 0 P 0 0 0 0 Past Encounters Encounter ID Performer Location Encounter Start Date Encounter Closed Date Diagnosis/Indication Diagnosis SNOMED-CT Code Diagnosis ICD10 Code Diagnosis IMO Codes Diagnosis Note [id number] JOB CORRALES MD OPHTHALMO [facility] [address] [place] [address] 5 11/30/2018 08:25:53 11/30/2018 12:52:16 Cataract 511584427 H26.9 stable, mild, update mrx Type 2 reed betes mellitus without complication 106232352 E11.9 no retinopath y ou I discussed diabetes with this patient. I discussed the importance of sugar control for reducing risk of diabetic complicati ons in the eyes. I recommened they follow up with their PCP/endocr inologist for continue sugar evaluation /managemen t. Also discussed importance of cardiovasc ular risk reduction. Call with changing/f luxuating vision. 1 year laura rn. [id number] JOB CORRALES MD OPHTHALMO LOGPatrick [address] [place] [address] 01/16/2020 10:15:48 01/16/2020 12:38:38 Type 2 diabetes mellitus without complication 902099750 E11.9 no retinopath y ou I discussed diabetes with this patient. I discussed the importance of sugar control for reducing risk of diabetic complicati ons in the eyes. I recommened they follow up with their PCP/endocr inologist for continue sugar evaluation /managemen t. Also discussed importance of cardiovasc ular risk reduction. Call with changing/f luxuating vision. 1 year laura bowen. [id number] JOB CORRALES MD OPHTHALMO LOGPatrick [address] [place] [address] 01/21/2021 09:33:25 01/21/2021 11:46:33 Type 2 diabetes mellitus without complication 867210505 E11.9 no retinopath y ou I discussed diabetes with this patient. I discussed the importance of sugar control for reducing risk of diabetic complicati ons in the eyes. I recommened they follow up with their PCP/endocr inologist for continue sugar evaluation /managemen t. Also discussed importance of cardiovasc ular risk reduction. Call with changing/f luxuating vision. 1 year laura rn. [id number] JOB CORRALES MD OPHTHALMO LOGY [address] [place] [place] [address] 5 01/24/2022 09:16:54 01/24/2022 16:32:34 Type 2 diabetes mellitus without complication 383661564 E11.9 no retinopath y ou I discussed diabetes with this patient. I discussed the importance of sugar control for reducing risk of diabetic complicati ons in the eyes. I recommened they follow up with their PCP/endocr inologist for continue sugar evaluation /managemen t. Also discussed importance of cardiovasc ular risk reduction. Call with changing/f luxuating vision. 1-2 year laura rn. [id number] JOB CORRALES MD OPHTHALMO [facility]Y [address] [place],[address] [place] [address] 5 02/01/2023 09:46:00 02/01/2023 11:51:22 Incipient senile cataract 295625146 H25.099 mild - continue mr1 year and prn [id number] JOB CORRALES MD OPHTHALMO LOGY [address] [place] [place] [address] 5 02/07/2024 11:26:49 02/07/2024 12:08:13 Incipient senile cataract 843801342 H25.099 mild - continue mr1 year and prn Posterior vitreous detachment 115137294 H43.819 Discussed vitreous detachment with the patient. I discussed the patient monitoring for increasing flashes/fl oater/guadalupe ge in vision and to call immediatel y for any change in the vision. [id number] JOB CORRALES MD OPHTHALMO LOG[facility] [address] [place] [address] 5 07/25/2024 13:16:19 07/25/2024 14:19:43 Incipient senile cataract 731999163 H25.099 mild mr today Posterior vitreous detachment 162242336 H43.819 Discussed vitreous detachment with the patient. I discussed the patient monitoring for increasing flashes/fl oater/guadalupe ge in vision and to call immediatel y for any change in the vision. Contusion of nose 909110 04 S00.33XA stable - no ocular problems seen Health Concerns Section Related Observation LastModified by Organization Detai ls LastModified Time None Recorded Concern Status LastModified by Organization Details LastModified Time None Recorded Advance Directives Directive None Recorded Payers Insurance Date Sequence Insurance Name Policy Number Policy Clay Covered Member ID Clay Member ID Guarantor Name 07/23/2024 1 [place] [employer] [id number] Kelly Samuels [id number] Kelly Samuels Notes Date Note Type Note Provider Name and Address Organization Details Recorded Time 01/21/2021 text/html 65 WF W/DM COMP1. OCC BLURRY VISION2. NIDDM X'S 2+ YRS // DR MUÑIZ // A1C ? NORMAL PER PT3. NO EYE SURGERY, LASER, LASIK, OR TRAUMA diego pak new problems JOB CORRALES MD [address] [place] [address], [phone], [facility] 01/21/2021 11:08:34 02/01/2023 text/html Diabetes (Ophthalmology) Reported by Patient JOB CORRALES MD [address] [place] [address], [phone], [facility] 02/01/2023 10:35:37 OBGyn Episode No OBEpisode recorded.
--- NOTE | 2025-04-29 07:30 | NM_ITS ---
APPROVED REPORT Exam: Nuclear Stress Test Indication: Chest pain, SOB, Family history Patient Location: Outpatient Stress Tech: Chantelle Diaz [place] Tech:Tara Espino, ARRT, RT (R)(N) Ht: 5 ft 3 in Wt: 180 lbs Bra Size: D HR: 73 bpm BP: 122/76 mmHg BSA: 1.85 m2 TID: 1.29 BMI: 31.8 History: Chest pain, SOB, Family history Procedure: Patient received 0.4 mg of intravenous Lexiscan, resting heart rate 73 bpm, resting blood pressure 122/76 mmHg, with Lexiscan maximum heart rate achieved was 91 bpm which is % of the maximum predicted heart rate and blood pressure was 127/73 mmHg. With Lexiscan, patient denied any complaint of chest pain. Cardiac Stress and Resting SPECT Images: Cardiac Stress and Resting SPECT images were obtained using technetium 99m Myoview 31.2 mCi stress and 10.05 mCi at rest. Resting and stress imaging in supine and prone positions demonstrate no evidence of fixed or reversible perfusion defects. There is increase in transient ischemic dilatation ratio (TID 1.29), which may be suggestive of possible multivessel disease or balanced ischemia. Gated imaging demonstrates mild reduction in global LV systolic function. LVEF is calculated at 48%. Conclusion: No evidence of fixed or reversible perfusion defects. There is increase in transient ischemic dilatation ratio (TID 1.29), which may be suggestive of possible multivessel disease or balanced ischemia. Gated imaging demonstrates mild reduction in global LV systolic function. LVEF is calculated at 48%. Electronically signed by : Marcella Maciel MD 05/02/2025 13:17:02
[2025-04-29] MEDS: ISOTOPE MYOVIEW (PER STUDY) 1 DOSE IV (09:09)
[2025-04-29] MEDS: SODIUM CHLORIDE 0.9% 10ML SYR (RAD ONLY) 10 ML IV ×2 (09:09)
--- NOTE | 2025-04-29 10:15 | CA_ITS ---
APPROVED REPORT EXAM: Comprehensive 2D, Doppler, and color-flow Echocardiogram Survey Associate: Leena June RVT Ht: 5 ft 6 in Wt: 183lbs BSA: 1.93 BP: 122/79 mmHg Indications: CHEST PAIN 2D Dimensions LA Volume 44.50 mL LA Volume Index 23.06 mL/m2 (M/F) 16-34 M-Mode Dimensions RVDd 1.84 cm (0.9-2.6) LA Diam 2.52 cm (1.9-4.0) LVDd 3.92 cm (3.5-5.7) LVDs 2.58 cm (3.5-5.7) IVSd 0.70 cm (0.6-1.1) PWd 0.67 cm (0.6-1.1) EF (Teich) 63.90% FS 34.20% EDV (Teich) 66.70 mL TAPSE 2.26 (<1.7) ESV (Teich) 24.10 mL LV Diastology E Decel Time 190 (160-240 msec) E/A Ratio 1.0 Aortic Valve ZEFERINO Index 0.92 cm2/m2 AoV Peak Km. 154.0 (50-130 cm/s) AO Peak GR. 9.50 mmHg AO Mean GR. 5.30 (<5 mmHg) AO VTI 27.5 (18-25 cm) ZEFERINO (VTI) 1.81 (2.5-4.5 cm2) Mitral Valve MV E Max Km. 85.0 (40-130 cm/s) MV A Velocity 88.0 (40-130 cm/s) E/A Ratio 0.97 MV PHT 56.0 ms Pulmonary Valve PV Peak Velocity 81.0 (50-150 cm/s) Tricuspid Valve TR P. Velocity 186.00 cm/s RAP Estimate 8.00 mmHg RVSP 21.90 mmHg Left Ventricle The left ventricle is normal size. Left ventricular systolic function is normal. The left ventricular ejection fraction is within the normal range. There is increased left ventricular wall thickness. There is normal LV segmental wall motion. The left ventricular diastolic function is normal. LVEF is 65% Right Ventricle The right ventricle is normal size. The right ventricular systolic function is normal. Atria Left atrium is mildly dilated. Right atrium is mildly dilated. There is no color Doppler evidence of interatrial shunt. Aortic Valve The aortic valve opens well. There is no hemodynamically significant aortic valvular stenosis. Trace aortic regurgitation is present. Mitral Valve The mitral valve is normal in structure. No evidence of mitral valve stenosis. Trace mitral regurgitation is present. Tricuspid Valve The tricuspid valve leaflets are thin and pliable. Mild tricuspid regurgitation. RVSP is 20-25 mmHg. Pulmonic Valve The pulmonary valve is grossly normal in structure. Trace pulmonic valve regurgitation is present. Great Vessels The aortic root is normal in size. IVC is normal in size and collapses >50% with inspiration. Pericardium There is no pericardial effusion. Other Information Study Quality: Fair Conclusion Normal biventricular systolic function. Mild biatrial dilation. Mild TR. Electronically signed by : Marcella Maciel MD 05/09/2025 07:01:19
== END 2025-04-29 23:59 | disposition home or self-care (01) ==
PROVIDERS: PCP Family Medicine; Visit Provider Physician Assistant
DX: I07.1 Rheumatic tricuspid insufficiency (principal); I11.9 Hypertensive heart disease without heart failure; R94.39 Abnormal result of other cardiovascular function study; G30.0 Alzheimer's disease with early onset; F02.C11 Dementia in other diseases classified elsewhere, severe, with agitation; Z82.49 Family history of ischemic heart disease and other diseases of the circulatory system
CPT/HCPCS: 78452; 93017; 93018; 93306; A9502; J2785